=== PATIENT | female | born 1945 | race Caucasian/White ===

== ENCOUNTER → 2017-01-05 | Outpatient (CLI) | payer OTHER ==
[~2017-01-05] MED LIST: ALPR0.5T; EFFEXOR; LISI-646 OR; LISIPOW; TRAM50TA2; VENL25TA2 OR; VENL50TA20 OR
[2017-01-05 08:21] LABS: Cholesterol 206 mg/dL (< 200); HDL Cholesterol 98 mg/dL (40-59); LDL Cholesterol 95 mg/dL (< 100); Triglycerides 107 mg/dL (< 150)
[2017-01-05 08:43] LABS: Urine Bilirubin Negative (Negative); Urine Blood Negative /uL (Negative); Urine Color Yellow (Yellow); Urine Glucose Normal (Normal); Urine Ketone Negative (Negative); Urine Nitrite Negative (Negative); Urine RBC 2 /hpf (0 - 4); Urine Squamous Epithelial Cell FEW /hpf (<5); Urine Urobilinogen Normal (Negative)
== END | disposition home or self-care (01) ==
LOC: LAB 07:45
PROVIDERS: ATTEND Internal Medicine
DX: Z00.00 Encounter for general adult medical examination without abnormal findings (principal); E78.2 Mixed hyperlipidemia; I10 Essential (primary) hypertension; E55.9 Vitamin D deficiency, unspecified
CPT/HCPCS: 36415; 80061; 81001; 82306

== ENCOUNTER 2017-02-24 09:55 | Emergency (ER) | payer OTHER ==
[~2017-02-24] VITALS: Ht 162.6 cm; Wt 72.6 kg
[2017-02-24] MEDS ORDERED: ACETAMINOPHEN 325 MG TAB PO ONE ×2 (13:05→13:15)
[2017-02-24 15:58] VITALS: BP 144/89
== END 2017-02-24 16:56 | disposition home or self-care (01) ==
LOC: ER 09:55
DX: S01.81XA Laceration without foreign body of other part of head, initial encounter (principal); I10 Essential (primary) hypertension; W19.XXXA Unspecified fall, initial encounter; Y93.89 Activity, other specified; Y99.8 Other external cause status; Y92.89 Other specified places as the place of occurrence of the external cause
CPT/HCPCS: 12011; 70450; 70486; 94761

== ENCOUNTER 2017-03-02 09:17 | Emergency (ER) | payer OTHER ==
[~2017-03-02] VITALS: Ht 162.6 cm; Wt 72.6 kg
[2017-03-02 09:50] VITALS: BP 161/101
== END 2017-03-02 10:30 | disposition home or self-care (01) ==
LOC: ER 09:17
DX: S01.112D Laceration without foreign body of left eyelid and periocular area, subsequent encounter (principal); I10 Essential (primary) hypertension; Z90.89 Acquired absence of other organs; Z90.710 Acquired absence of both cervix and uterus; X58.XXXD Exposure to other specified factors, subsequent encounter

== ENCOUNTER → 2017-05-15 | Outpatient (CLI) | payer OTHER ==
[2017-05-15 09:50] LABS: Basophils # (auto) 0 uL; Basophils % (auto) 0.9 % (0.0-2.0); Eosinophils # (auto) 0.1 uL; Eosinophils % (auto) 2.5 % (0.0-7.0); Hematocrit 39.8 % (36.0-46.0); Hemoglobin 13.2 g/dL (12.2-16.2); Lymphocytes % (auto) 25.2 % (10.0-50.0); Mean Corpuscular Hemoglobin 32.3 pg (28.0-32.0); Mean Corpuscular Hgb Conc. 33.2 g/dL (32.0-36.0); Mean Corpuscular Volume 97.1 fL (80.0-100.0); Mean Platelet Volume 7.4 fL (6.9-10.8); Monocytes # (auto) 0.4 uL; Monocytes % (auto) 9.9 % (0.0-12.0); Neutrophils # (auto) 2.6 uL; Neutrophils % (auto) 61.5 % (37.0-80.0); Nucleated Red Blood Cells % 0.1 %; Platelet Count (auto) 201 10^3/uL (140-450); Red Cell Distribution Width 13.9 % (11.8-14.3); White Blood Cell 4.2 10^3/uL (4.4-10.8)
[2017-05-15 10:18] LABS: Albumin 3.6 g/dL (3.4-5.0); BUN/Creatinine Ratio 20.7; Bilirubin, Total 0.5 mg/dL (0.2-1.0); Calcium 8.6 mg/dL (8.5-10.1); Potassium 4.7 mmol/L (3.5-5.1); Total Protein 7.4 g/dL (6.4-8.2)
== END | disposition home or self-care (01) ==
LOC: LAB 09:28
PROVIDERS: ATTEND Internal Medicine
DX: Z75.0 Medical services not available in home (principal); R79.89 Other specified abnormal findings of blood chemistry
CPT/HCPCS: 36415; 80053; 82728; 83540; 83550; 83615; 85025

== ENCOUNTER → 2017-07-27 | Outpatient (CLI) | payer OTHER ==
[2017-07-27 11:02] LABS: Basophils # (auto) 0 uL; Basophils % (auto) 0.8 % (0.0-2.0); Eosinophils # (auto) 0.1 uL; Eosinophils % (auto) 1.6 % (0.0-7.0); Hematocrit 44.8 % (36.0-46.0); Hemoglobin 14.8 g/dL (12.2-16.2); Lymphocytes # (auto) 1.7 uL; Mean Corpuscular Hemoglobin 32.1 pg (28.0-32.0); Mean Corpuscular Hgb Conc. 33.1 g/dL (32.0-36.0); Monocytes # (auto) 0.6 uL; Monocytes % (auto) 13.1 % (0.0-12.0); Neutrophils # (auto) 2.3 uL; Neutrophils % (auto) 49.5 % (37.0-80.0); Platelet Count (auto) 233 10^3/uL (140-450); Red Blood Cells 4.62 10^6/uL (4.0-5.20); White Blood Cell 4.7 10^3/uL (4.4-10.8)
[2017-07-27 11:16] LABS: % Iron Saturation 31.8 % (15-50)
[2017-07-27 11:20] LABS: BUN/Creatinine Ratio 21.3; Bilirubin, Total 0.4 mg/dL (0.2-1.0); Calcium 8.8 mg/dL (8.5-10.1); Potassium 4.8 mmol/L (3.5-5.1); Total Protein 8.3 g/dL (6.4-8.2)
== END | disposition home or self-care (01) ==
LOC: LAB 10:24
PROVIDERS: ATTEND Internal Medicine
DX: E83.119 Hemochromatosis, unspecified (principal)
CPT/HCPCS: 36415; 80053; 82728; 83540; 83550; 83615; 85025

== ENCOUNTER → 2017-09-27 | Outpatient (CLI) | payer OTHER | END | disposition home or self-care (01) | LOC: LAB 08:22 | PROVIDERS: ATTEND Physician Assistant | DX: I10 Essential (primary) hypertension (principal); Z20.818 Contact with and (suspected) exposure to other bacterial communicable diseases; Z79.899 Other long term (current) drug therapy | CPT/HCPCS: 87081 ==

== ENCOUNTER → 2017-10-10 | Outpatient (CLI) | payer OTHER ==
[2017-10-10 11:32] LABS: Basophils # (auto) 0 uL; Basophils % (auto) 0.7 % (0.0-2.0); Eosinophils # (auto) 0 uL; Eosinophils % (auto) 0.9 % (0.0-7.0); Hemoglobin 14.4 g/dL (12.2-16.2); Lymphocytes # (auto) 1.3 uL; Lymphocytes % (auto) 26.2 % (10.0-50.0); Mean Corpuscular Hemoglobin 33.6 pg (28.0-32.0); Mean Corpuscular Hgb Conc. 33.4 g/dL (32.0-36.0); Mean Corpuscular Volume 100.5 fL (80.0-100.0); Monocytes # (auto) 0.8 uL; Monocytes % (auto) 15.7 % (0.0-12.0); Neutrophils # (auto) 2.8 uL; Neutrophils % (auto) 56.5 % (37.0-80.0); Platelet Count (auto) 262 10^3/uL (140-450); Red Blood Cells 4.28 10^6/uL (4.0-5.20); Red Cell Distribution Width 15.8 % (11.8-14.3)
[2017-10-10 13:50] LABS: % Iron Saturation 91.4 % (15-50)
== END | disposition home or self-care (01) ==
LOC: LAB 10:59
PROVIDERS: ATTEND Internal Medicine
DX: E83.119 Hemochromatosis, unspecified (principal); I10 Essential (primary) hypertension; Z79.899 Other long term (current) drug therapy
CPT/HCPCS: 36415; 82728; 83540; 83550; 85025

== ENCOUNTER → 2017-12-18 | Outpatient (CLI) | payer OTHER ==
[2017-12-18 14:54] LABS: Eosinophils # (auto) 0.1 uL; Lymphocytes # (auto) 1.2 uL; Neutrophils # (auto) 3.5 uL; Neutrophils % (auto) 65.5 % (37.0-80.0); Nucleated Red Blood Cells % 0.2 %
[2017-12-18 14:56] LABS: Basophils # (auto) 0.1 uL; Eosinophils % (auto) 1.6 % (0.0-7.0); Hematocrit 43.4 % (36.0-46.0); Hemoglobin 14.8 g/dL (12.2-16.2); Lymphocytes % (auto) 21.7 % (10.0-50.0); Mean Corpuscular Hemoglobin 36.2 pg (28.0-32.0); Mean Corpuscular Volume 106.3 fL (80.0-100.0); Monocytes # (auto) 0.5 uL; Monocytes % (auto) 10.2 % (0.0-12.0); Platelet Count (auto) 260 10^3/uL (140-450); Red Blood Cells 4.08 10^6/uL (4.0-5.20); Red Cell Distribution Width 14.1 % (11.8-14.3); White Blood Cell 5.3 10^3/uL (4.4-10.8)
[2017-12-18 15:18] LABS: Albumin 3.8 g/dL (3.4-5.0); BUN/Creatinine Ratio 15.3; Bilirubin, Total 0.4 mg/dL (0.2-1.0); Potassium 4.6 mmol/L (3.5-5.1); Total Protein 7.3 g/dL (6.4-8.2)
[2017-12-18 15:19] LABS: % Iron Saturation 57.5 % (15-50)
== END | disposition home or self-care (01) ==
LOC: LAB 14:34
PROVIDERS: ATTEND Internal Medicine
DX: E83.119 Hemochromatosis, unspecified (principal); I10 Essential (primary) hypertension; Z79.899 Other long term (current) drug therapy
CPT/HCPCS: 36415; 80053; 82728; 83540; 83550; 83615; 85025

== ENCOUNTER → 2018-01-15 | Outpatient (CLI) | payer OTHER ==
[2018-01-15 08:36] LABS: Basophils # (auto) 0 uL; Eosinophils # (auto) 0.1 uL; Lymphocytes # (auto) 1.3 uL; Mean Corpuscular Hemoglobin 34.9 pg (28.0-32.0); Monocytes # (auto) 0.6 uL; Neutrophils # (auto) 2.4 uL; Neutrophils % (auto) 55.2 % (37.0-80.0); Nucleated Red Blood Cells % 0.1 %; Red Cell Distribution Width 13.3 % (11.8-14.3); White Blood Cell 4.4 10^3/uL (4.4-10.8)
[2018-01-15 08:38] LABS: Basophils % (auto) 0.9 % (0.0-2.0); Eosinophils % (auto) 1.2 % (0.0-7.0); Hematocrit 45.3 % (36.0-46.0); Lymphocytes % (auto) 28.8 % (10.0-50.0); Mean Corpuscular Hgb Conc. 33.1 g/dL (32.0-36.0); Mean Corpuscular Volume 105.4 fL (80.0-100.0); Monocytes % (auto) 13.9 % (0.0-12.0); Platelet Count (auto) 235 10^3/uL (140-450)
[2018-01-15 09:00] LABS: Albumin 3.8 g/dL (3.4-5.0); BUN/Creatinine Ratio 18.6; Bilirubin, Total 0.5 mg/dL (0.2-1.0); Calcium 8.9 mg/dL (8.5-10.1); Potassium 4.9 mmol/L (3.5-5.1); Total Protein 7.7 g/dL (6.4-8.2)
== END | disposition home or self-care (01) ==
LOC: LAB 08:16
PROVIDERS: ATTEND Physician Assistant
DX: I10 Essential (primary) hypertension (principal); E55.9 Vitamin D deficiency, unspecified; E78.2 Mixed hyperlipidemia; R53.83 Other fatigue
CPT/HCPCS: 36415; 80053; 80061; 82306; 85025

== ENCOUNTER → 2018-02-01 | Outpatient (CLI) | payer OTHER ==
[2018-02-01 12:01] LABS: Basophils # (auto) 0 uL; Basophils % (auto) 0.6 % (0.0-2.0); Eosinophils # (auto) 0.1 uL; Eosinophils % (auto) 1.1 % (0.0-7.0); Hemoglobin 15.1 g/dL (12.2-16.2); Mean Corpuscular Hemoglobin 35.4 pg (28.0-32.0); Monocytes # (auto) 0.5 uL; Platelet Count (auto) 255 10^3/uL (140-450)
[2018-02-01 12:03] LABS: Hematocrit 44.5 % (36.0-46.0); Lymphocytes % (auto) 17.5 % (10.0-50.0); Mean Corpuscular Hgb Conc. 33.9 g/dL (32.0-36.0); Mean Corpuscular Volume 104.2 fL (80.0-100.0); Neutrophils # (auto) 4.1 uL; Neutrophils % (auto) 71.8 % (37.0-80.0); Red Blood Cells 4.27 10^6/uL (4.0-5.20); White Blood Cell 5.8 10^3/uL (4.4-10.8)
[2018-02-01 12:09] LABS: % Iron Saturation 36.5 % (15-50)
[2018-02-01 12:16] LABS: Follicle Stimulating Hormone 6.53 IU/L (SEE BELOW); Leuteinizing Hormone 4.1 IU/L
[2018-02-01 12:21] LABS: Albumin 3.8 g/dL (3.4-5.0); BUN/Creatinine Ratio 16.2; Bilirubin, Total 0.4 mg/dL (0.2-1.0); Calcium 9.2 mg/dL (8.5-10.1); Potassium 4.9 mmol/L (3.5-5.1); Total Protein 7.6 g/dL (6.4-8.2)
== END | disposition home or self-care (01) ==
LOC: LAB 11:09
PROVIDERS: ATTEND Obstetrics & Gynecology
DX: N95.1 Menopausal and female climacteric states (principal); I10 Essential (primary) hypertension; E78.2 Mixed hyperlipidemia
CPT/HCPCS: 36415; 80053; 80061; 82670; 82728; 83001; 83002; 83540; 83550; 84403; 84443; 85025

== ENCOUNTER 2018-03-22 20:49 | Emergency (ER) | payer OTHER ==
[~2018-03-22] VITALS: Ht 162.6 cm; Wt 72.1 kg
[2018-03-22 21:25] LABS: Eosinophils # (auto) 0.1 uL; Eosinophils % (auto) 1.2 % (0.0-7.0); Lymphocytes # (auto) 1.8 uL; Monocytes # (auto) 0.6 uL; Neutrophils # (auto) 4.1 uL
[2018-03-22 21:32] LABS: Basophils # (auto) 0.1 uL; Hematocrit 42.8 % (36.0-46.0); Hemoglobin 14.8 g/dL (12.2-16.2); Lymphocytes % (auto) 27.6 % (10.0-50.0); Mean Corpuscular Hemoglobin 34.8 pg (28.0-32.0); Mean Corpuscular Hgb Conc. 34.4 g/dL (32.0-36.0); Monocytes % (auto) 8.4 % (0.0-12.0); Neutrophils % (auto) 61.8 % (37.0-80.0); Platelet Count (auto) 235 10^3/uL (140-450); Red Blood Cells 4.24 10^6/uL (4.0-5.20); Red Cell Distribution Width 13.6 % (11.8-14.3); White Blood Cell 6.7 10^3/uL (4.4-10.8)
[2018-03-22 21:40] LABS: Alanine Aminotransferase 56 U/L (13-56); Albumin 3.9 g/dL (3.4-5.0); Anion Gap 12 (5-15); Aspartate Aminotransferase 51 U/L (15-37); BUN/Creatinine Ratio 21.8; Blood Urea Nitrogen 17 mg/dL (7-18); Calcium 8.5 mg/dL (8.5-10.1); Carbon Dioxide 23 mmol/L (21-32); Chloride 102 mmol/L (98-107); GFR African American 94 mL/min; GFR Non-African American 77 mL/min; Glucose 79 mg/dL (74-106); Sodium 137 mmol/L (136-145)
[2018-03-22 21:45] LABS: Alkaline Phosphatase 92 U/L (45-117); Bilirubin, Total 0.2 mg/dL (0.2-1.0); Total Protein 7.7 g/dL (6.4-8.2)
[2018-03-22 22:45] VITALS: BP 132/71
== END 2018-03-22 22:56 | disposition left against medical advice (07) ==
LOC: ER 20:53
DX: R06.02 Shortness of breath (principal); Z53.21 Procedure and treatment not carried out due to patient leaving prior to being seen by health care provider
CPT/HCPCS: 36415; 71045; 80053; 80320; 83735; 83880; 84484; 85025

== ENCOUNTER → 2018-03-25 | Outpatient (CLI) | payer OTHER ==
[2018-03-25 16:01] LABS: Albumin 3.5 g/dL (3.4-5.0); BUN/Creatinine Ratio 22.5; Bilirubin, Total 0.7 mg/dL (0.2-1.0); Calcium 8.9 mg/dL (8.5-10.1); Total Protein 7.3 g/dL (6.4-8.2)
== END | disposition home or self-care (01) ==
LOC: LAB 10:40
PROVIDERS: ATTEND Internal Medicine Cardiovascular Disease
DX: I10 Essential (primary) hypertension (principal); E78.2 Mixed hyperlipidemia
CPT/HCPCS: 36415; 80053; 80061

== ENCOUNTER → 2018-04-03 | Outpatient (CLI) | payer OTHER ==
[~2018-04-03] VITALS: Ht 162.6 cm; Wt 72.1 kg
[~2018-04-03] MED LIST changes: +ADENOSINE 61 MG in GIVE UN-DILUTED 0 ML IV STA
[2018-04-03 10:01] VITALS: BP 142/108
== END | disposition home or self-care (01) ==
LOC: XY 08:07
PROVIDERS: ATTEND Internal Medicine Cardiovascular Disease
DX: I11.9 Hypertensive heart disease without heart failure (principal)
CPT/HCPCS: 78452; 93017; A9500; J0153

== ENCOUNTER → 2018-04-18 | Outpatient (CLI) | payer OTHER ==
[~2018-04-18] MED LIST changes: -ADENOSINE 61 MG in GIVE UN-DILUTED 0 ML IV STA
== END | disposition home or self-care (01) ==
LOC: XYW 09:48
PROVIDERS: ATTEND Internal Medicine Cardiovascular Disease
DX: I08.2 Rheumatic disorders of both aortic and tricuspid valves (principal)
CPT/HCPCS: 93306

== ENCOUNTER → 2018-06-06 | Outpatient (CLI) | payer OTHER ==
[2018-06-06 10:25] LABS: Eosinophils # (auto) 0.1 uL; Mean Corpuscular Hemoglobin 33.8 pg (28.0-32.0); Nucleated Red Blood Cells % 0.1 %
[2018-06-06 10:26] LABS: Basophils # (auto) 0.1 uL; Basophils % (auto) 1.1 % (0.0-2.0); Hematocrit 48.1 % (36.0-46.0); Hemoglobin 16.1 g/dL (12.2-16.2); Lymphocytes # (auto) 1.2 uL; Lymphocytes % (auto) 24.9 % (10.0-50.0); Mean Corpuscular Hgb Conc. 33.4 g/dL (32.0-36.0); Mean Corpuscular Volume 101.2 fL (80.0-100.0); Monocytes # (auto) 0.5 uL; Monocytes % (auto) 9.7 % (0.0-12.0); Neutrophils # (auto) 2.9 uL; Neutrophils % (auto) 62.3 % (37.0-80.0); Platelet Count (auto) 250 10^3/uL (140-450); Red Blood Cells 4.75 10^6/uL (4.0-5.20); White Blood Cell 4.7 10^3/uL (4.4-10.8)
[2018-06-06 10:38] LABS: % Iron Saturation 54.9 % (15-50)
[2018-06-06 10:39] LABS: Albumin 3.9 g/dL (3.4-5.0); Calcium 9.3 mg/dL (8.5-10.1); Potassium 4.6 mmol/L (3.5-5.1)
[2018-06-06 10:42] LABS: BUN/Creatinine Ratio 15.8; Bilirubin, Total 0.4 mg/dL (0.2-1.0); Total Protein 7.8 g/dL (6.4-8.2)
== END | disposition home or self-care (01) ==
LOC: LAB 10:00
PROVIDERS: ATTEND Internal Medicine
DX: E83.119 Hemochromatosis, unspecified (principal)
CPT/HCPCS: 36415; 80053; 82728; 83540; 83550; 83615; 85025

== ENCOUNTER → 2018-06-06 | Outpatient (CLI) | payer OTHER ==
[~2018-06-06] MED LIST changes: +ALBUTEROL SULF 2.5 MG/0.5ML(0.5%) NEB SOLN ONE
== END | disposition home or self-care (01) ==
LOC: RT 08:32
PROVIDERS: ATTEND Internal Medicine Pulmonary Disease
DX: R06.00 Dyspnea, unspecified (principal)
CPT/HCPCS: 36600; 82805; 94060; J7611; 94727; 94729

== ENCOUNTER → 2018-07-01 | Outpatient (CLI) | payer OTHER ==
[~2018-07-01] MED LIST changes: -ALBUTEROL SULF 2.5 MG/0.5ML(0.5%) NEB SOLN ONE
== END | disposition home or self-care (01) ==
LOC: RT 09:05
PROVIDERS: ATTEND Internal Medicine Pulmonary Disease
DX: R06.00 Dyspnea, unspecified (principal)
CPT/HCPCS: 94618

== ENCOUNTER → 2018-07-29 | Outpatient (CLI) | payer OTHER ==
[2018-07-29 12:19] LABS: Basophils # (auto) 0 uL; Eosinophils # (auto) 0.1 uL; Lymphocytes % (auto) 21.8 % (10.0-50.0); Mean Corpuscular Hemoglobin 34.2 pg (28.0-32.0); Mean Corpuscular Hgb Conc. 33.8 g/dL (32.0-36.0); Monocytes # (auto) 0.5 uL; Nucleated Red Blood Cells % 0.1 %
[2018-07-29 12:21] LABS: Basophils % (auto) 0.8 % (0.0-2.0); Eosinophils % (auto) 1.9 % (0.0-7.0); Hemoglobin 14.5 g/dL (12.2-16.2); Lymphocytes # (auto) 0.9 uL; Mean Corpuscular Volume 101.1 fL (80.0-100.0); Monocytes % (auto) 11.3 % (0.0-12.0); Neutrophils # (auto) 2.8 uL; Neutrophils % (auto) 64.2 % (37.0-80.0); Platelet Count (auto) 214 10^3/uL (140-450); Red Blood Cells 4.26 10^6/uL (4.0-5.20); Red Cell Distribution Width 14.3 % (11.8-14.3); White Blood Cell 4.3 10^3/uL (4.4-10.8)
[2018-07-29 12:43] LABS: Albumin 3.7 g/dL (3.4-5.0); BUN/Creatinine Ratio 23.3; Calcium 8.7 mg/dL (8.5-10.1); Potassium 4.3 mmol/L (3.5-5.1)
[2018-07-29 12:59] LABS: Bilirubin, Total 0.6 mg/dL (0.2-1.0); Total Protein 7.5 g/dL (6.4-8.2)
[2018-07-29 14:29] LABS: % Iron Saturation 34.3 % (15-50)
== END | disposition home or self-care (01) ==
LOC: LAB 11:45
PROVIDERS: ATTEND Internal Medicine
DX: E83.119 Hemochromatosis, unspecified (principal)
CPT/HCPCS: 36415; 80053; 82728; 83540; 83550; 83615; 85025

== ENCOUNTER → 2018-09-11 | Outpatient (CLI) | payer OTHER | END | disposition home or self-care (01) | LOC: XYW 09:36 | PROVIDERS: ATTEND Internal Medicine Cardiovascular Disease | DX: I06.1 Rheumatic aortic insufficiency (principal); I11.9 Hypertensive heart disease without heart failure | CPT/HCPCS: 93306 ==

== ENCOUNTER → 2018-10-01 | Outpatient (CLI) | payer OTHER | END | disposition home or self-care (01) | LOC: LAB 15:00 | PROVIDERS: ATTEND Physician Assistant | DX: C44.91 Basal cell carcinoma of skin, unspecified (principal) ==

== ENCOUNTER 2018-11-18 07:55 | Day surgery (SDC) | payer OTHER ==
[2018-11-15 11:52] LABS: INR 0.99 (0.9-1.15); Partial Thromboplastin Time 25.4 sec (23.64-32.05)
[2018-11-15 11:56] LABS: Albumin 3.9 g/dL (3.4-5.0); Calcium 9.5 mg/dL (8.5-10.1); Potassium 4.9 mmol/L (3.5-5.1)
[2018-11-15 12:01] LABS: BUN/Creatinine Ratio 26.7; Bilirubin, Total 0.4 mg/dL (0.2-1.0); Total Protein 7.9 g/dL (6.4-8.2)
[2018-11-15 12:06] LABS: Basophils # (auto) 0 uL; Basophils % (auto) 0.5 % (0.0-2.0); Eosinophils # (auto) 0.1 uL; Eosinophils % (auto) 1.2 % (0.0-7.0); Hematocrit 44.1 % (36.0-46.0); Hemoglobin 14.5 g/dL (12.2-16.2); Lymphocytes % (auto) 19.5 % (10.0-50.0); Mean Corpuscular Hemoglobin 31.3 pg (28.0-32.0); Mean Corpuscular Hgb Conc. 32.7 g/dL (32.0-36.0); Mean Corpuscular Volume 95.6 fL (80.0-100.0); Monocytes # (auto) 0.7 uL; Neutrophils # (auto) 3.3 uL; Neutrophils % (auto) 65.8 % (37.0-80.0); Nucleated Red Blood Cells % 0.1 %; Platelet Count (auto) 218 10^3/uL (140-450); Red Blood Cells 4.62 10^6/uL (4.0-5.20); Red Cell Distribution Width 16.3 % (11.8-14.3)
[~2018-11-18] VITALS: Ht 162.6 cm; Wt 76.2 kg
[~2018-11-18 07:55] MED LIST changes: +ACET30TA15 PO; -ALPR0.5T; +ALPR0.5T PO; +AMLO5TAB13 PO; +BUPR-40 PO; -EFFEXOR; +HYDR12.56 PO; -LISI-646 OR; +LISI40TA PO; -LISIPOW; -TRAM50TA2; +VENL150C58 PO; -VENL25TA2 OR; -VENL50TA20 OR
[2018-11-18] MEDS ORDERED: MIDAZOLAM HCL 1MG/1ML-2 ML VIAL IV ONE (08:30)
[2018-11-18] MEDS ORDERED: LIDOCAINE VISCOUS 2% 15ML UD PO ONE (08:30)
[2018-11-18] MEDS ORDERED: fentaNYL CITRATE 100 MCG/2 ML VL IV ONE (08:30)
[2018-11-18] MEDS ORDERED: IOHEXOL 350 MG/ML 100ML IJ ONE (09:47)
[2018-11-18] MEDS ORDERED: METOPROLOL TARTRATE 1MG/1ML-5ML VIAL IV ONE ×4 (10:06→10:26)
[2018-11-18] MEDS ORDERED: VERAPAMIL 2.5MG/ML INJ 2ML VIAL IV ONE ×2 (10:07→10:15)
[2018-11-18] MEDS ORDERED: ATROPINE SULFATE 1 MG/1 ML VIAL ONE (10:07)
== END 2018-11-18 14:03 | disposition home or self-care (01) ==
LOC: CATH 07:55
PROVIDERS: ATTEND Internal Medicine
DX: I08.0 Rheumatic disorders of both mitral and aortic valves (principal); G89.4 Chronic pain syndrome; F32.9 Major depressive disorder, single episode, unspecified; K21.9 Gastro-esophageal reflux disease without esophagitis; E28.39 Other primary ovarian failure; I11.0 Hypertensive heart disease with heart failure; I50.9 Heart failure, unspecified; J43.9 Emphysema, unspecified; K76.0 Fatty (change of) liver, not elsewhere classified; M46.04 Spinal enthesopathy, thoracic region; Z82.49 Family history of ischemic heart disease and other diseases of the circulatory system; Z79.899 Other long term (current) drug therapy
CPT/HCPCS: 36415; 71250; 75571; 75574; 80053; 85025; 85610; 85730; 93312; J2250; J3010; J7030; Q9967; 99152; J0461

== ENCOUNTER → 2018-12-12 | Outpatient (CLI) | payer OTHER ==
[2018-12-12 08:49] LABS: Basophils # (auto) 0 uL; Basophils % (auto) 0.6 % (0.0-2.0); Eosinophils # (auto) 0.1 uL; Eosinophils % (auto) 1.4 % (0.0-7.0); Hematocrit 43.7 % (36.0-46.0); Hemoglobin 14.3 g/dL (12.2-16.2); Lymphocytes % (auto) 26.6 % (10.0-50.0); Mean Corpuscular Hemoglobin 31.5 pg (28.0-32.0); Mean Corpuscular Hgb Conc. 32.8 g/dL (32.0-36.0); Mean Corpuscular Volume 95.9 fL (80.0-100.0); Monocytes # (auto) 0.5 uL; Monocytes % (auto) 14.2 % (0.0-12.0); Neutrophils # (auto) 2.1 uL; Neutrophils % (auto) 57.2 % (37.0-80.0); Platelet Count (auto) 203 10^3/uL (140-450); Red Blood Cells 4.56 10^6/uL (4.0-5.20); Red Cell Distribution Width 18.1 % (11.8-14.3); White Blood Cell 3.7 10^3/uL (4.4-10.8)
[2018-12-12 09:10] LABS: Albumin 3.9 g/dL (3.4-5.0); BUN/Creatinine Ratio 21.6; Calcium 9.1 mg/dL (8.5-10.1); Potassium 3.9 mmol/L (3.5-5.1)
[2018-12-12 09:12] LABS: Bilirubin, Total 0.3 mg/dL (0.2-1.0); Total Protein 7.9 g/dL (6.4-8.2)
[2018-12-12 09:15] LABS: % Iron Saturation 17.1 % (15-50)
== END | disposition home or self-care (01) ==
LOC: LAB 08:25
PROVIDERS: ATTEND Internal Medicine
DX: E83.119 Hemochromatosis, unspecified (principal)
CPT/HCPCS: 36415; 80053; 82728; 83540; 83550; 83615; 85025

== ENCOUNTER → 2019-03-03 | Outpatient (CLI) | payer OTHER ==
[~2019-03-03] MED LIST changes: -AMLO5TAB13 PO; +AMLO5TAB15 PO
[2019-03-03 11:28] LABS: Basophils # (auto) 0 uL; Basophils % (auto) 0.8 % (0.0-2.0); Eosinophils # (auto) 0.1 uL; Eosinophils % (auto) 1.7 % (0.0-7.0); Hematocrit 41.4 % (36.0-46.0); Hemoglobin 13.5 g/dL (12.2-16.2); Lymphocytes % (auto) 28.9 % (10.0-50.0); Mean Corpuscular Hemoglobin 31.2 pg (28.0-32.0); Mean Corpuscular Hgb Conc. 32.7 g/dL (32.0-36.0); Mean Corpuscular Volume 95.4 fL (80.0-100.0); Monocytes # (auto) 0.4 uL; Monocytes % (auto) 11.4 % (0.0-12.0); Neutrophils % (auto) 57.2 % (37.0-80.0); Platelet Count (auto) 232 10^3/uL (140-450); Red Blood Cells 4.34 10^6/uL (4.0-5.20); Red Cell Distribution Width 16.1 % (11.8-14.3); White Blood Cell 3.5 10^3/uL (4.4-10.8)
[2019-03-03 11:36] LABS: Albumin 3.8 g/dL (3.4-5.0); Calcium 9.8 mg/dL (8.5-10.1); Potassium 4.5 mmol/L (3.5-5.1)
[2019-03-03 11:39] LABS: BUN/Creatinine Ratio 12.2; Bilirubin, Total 0.4 mg/dL (0.2-1.0); Total Protein 7.8 g/dL (6.4-8.2)
[2019-03-03 17:14] LABS: % Iron Saturation 14.8 % (15-50)
== END | disposition home or self-care (01) ==
LOC: LAB 10:18
PROVIDERS: ATTEND Internal Medicine
DX: E83.119 Hemochromatosis, unspecified (principal)
CPT/HCPCS: 36415; 80053; 82728; 83540; 83550; 83615; 85025

== ENCOUNTER → 2019-03-31 | Outpatient (CLI) | payer OTHER ==
[2019-03-31 11:09] LABS: Potassium 4.1 mmol/L (3.5-5.1)
[2019-03-31 11:15] LABS: Albumin 3.7 g/dL (3.4-5.0); BUN/Creatinine Ratio 13.3; Bilirubin, Total 0.4 mg/dL (0.2-1.0); Calcium 9.2 mg/dL (8.5-10.1); Total Protein 7.9 g/dL (6.4-8.2)
== END | disposition home or self-care (01) ==
LOC: LAB 09:03
PROVIDERS: ATTEND Internal Medicine
DX: R06.02 Shortness of breath (principal); E83.19 Other disorders of iron metabolism; I10 Essential (primary) hypertension
CPT/HCPCS: 36415; 80053

== ENCOUNTER → 2019-05-27 | Outpatient (CLI) | payer OTHER ==
[~2019-05-27] MED LIST changes: +FURO40TA4 PO; +POTA8TAB2 PO; +SPIR50TA5 PO
[2019-05-27 10:59] LABS: Basophils # (auto) 0 uL; Basophils % (auto) 0.9 % (0.0-2.0); Eosinophils # (auto) 0.1 uL; Eosinophils % (auto) 2.8 % (0.0-7.0); Hematocrit 41.1 % (36.0-46.0); Hemoglobin 13.5 g/dL (12.2-16.2); Lymphocytes % (auto) 28.3 % (10.0-50.0); Mean Corpuscular Hgb Conc. 32.8 g/dL (32.0-36.0); Mean Corpuscular Volume 94.2 fL (80.0-100.0); Monocytes # (auto) 0.5 uL; Monocytes % (auto) 12.5 % (0.0-12.0); Neutrophils % (auto) 55.5 % (37.0-80.0); Nucleated Red Blood Cells % 0.1 %; Platelet Count (auto) 207 10^3/uL (140-450); Red Blood Cells 4.36 10^6/uL (4.0-5.20); Red Cell Distribution Width 16.9 % (11.8-14.3); White Blood Cell 3.6 10^3/uL (4.4-10.8)
[2019-05-27 11:13] LABS: INR 1.02 (0.9-1.15); Partial Thromboplastin Time 25.6 sec (23.64-32.05)
[2019-05-27 11:26] LABS: Albumin 3.9 g/dL (3.4-5.0); Calcium 9.2 mg/dL (8.5-10.1); Potassium 5.4 mmol/L (3.5-5.1)
[2019-05-27 11:31] LABS: BUN/Creatinine Ratio 21.6; Bilirubin, Total 0.4 mg/dL (0.2-1.0); Total Protein 7.6 g/dL (6.4-8.2)
[2019-05-27 11:33] LABS: Urine Bacteria MOD /hpf (None Seen); Urine Blood Negative /uL (Negative); Urine Specific Gravity 1.008 (1.001-1.035); Urine WBC 23 /hpf (0 - 5)
== END | disposition home or self-care (01) ==
LOC: LAB 10:39
PROVIDERS: ATTEND Internal Medicine
DX: Z01.812 Encounter for preprocedural laboratory examination (principal); I11.0 Hypertensive heart disease with heart failure; I50.9 Heart failure, unspecified
CPT/HCPCS: 36415; 80053; 81001; 85025; 85610; 85730

== ENCOUNTER 2019-05-28 09:21 | Day surgery (SDC) | payer OTHER ==
[~2019-05-28] VITALS: Ht 162.6 cm; Wt 77.1 kg
[~2019-05-28 09:21] MED LIST changes: -ACET30TA15 PO; -BUPR-40 PO; -HYDR12.56 PO; -VENL150C58 PO
[2019-05-28] MEDS ORDERED: MIDAZOLAM HCL 1MG/1ML-2 ML VIAL ONE ×2 (12:16→12:36)
[2019-05-28] MEDS ORDERED: IOHEXOL 350 MG/ML 100ML IJ ONE (12:16)
[2019-05-28] MEDS ORDERED: ANGIOMAX 250 MG VIAL IV ONE (12:16)
[2019-05-28] MEDS ORDERED: LIDOCAINE 2%HCL (LOCAL ANESTH.) INJ 20ML MDV ONE (12:16)
[2019-05-28] MEDS ORDERED: SODIUM CHL 0.9% 0 ML ONE (12:16)
[2019-05-28] MEDS ORDERED: fentaNYL CITRATE 100 MCG/2 ML VL ONE ×2 (12:16→12:36)
[2019-05-28] MEDS ORDERED: IODIXANOL 320MG/ML 100ML BTL IV ONE (12:17)
[2019-05-28] MEDS ORDERED: HYDROcodone-ACET 5/325MG TAB PO PRN (13:30)
[2019-05-28] MEDS ORDERED: ONDANSETRON HCL 4 MG/2 ML VIAL IV PRN (13:30)
[2019-05-28] MEDS ORDERED: ACETAMINOPHEN 500 MG TAB PO PRN (13:30)
== END 2019-05-28 15:35 | disposition home or self-care (01) ==
LOC: CATH 09:21
PROVIDERS: ATTEND Internal Medicine
DX: I11.0 Hypertensive heart disease with heart failure (principal); I50.9 Heart failure, unspecified; I27.22 Pulmonary hypertension due to left heart disease; Z79.899 Other long term (current) drug therapy; Z98.890 Other specified postprocedural states
CPT/HCPCS: 93460; C1751; C1760; C1894; J1644; J2250; J3010; Q9967; 99152; 99153

== ENCOUNTER 2019-08-20 15:36 | Inpatient (IN) | payer OTHER ==
[~2019-08-20] VITALS: Ht 162.6 cm; Wt 78.5 kg
[2019-08-20 16:42] LABS: Eosinophils # (auto) 0 10 ^3/uL (0-0.8); Hemoglobin 13.6 g/dL (12.2-16.2); Mean Corpuscular Hemoglobin 34.1 pg (28.0-32.0); Neutrophils # (auto) 2.3 10 ^3/uL (1.6-8.6)
[2019-08-20 16:44] LABS: Basophils # (auto) 0 10 ^3/uL (0-0.2); Basophils % (auto) 0.9 % (0.0-2.0); Eosinophils % (auto) 0.9 % (0.0-7.0); Lymphocytes % (auto) 27.2 % (10.0-50.0); Mean Corpuscular Hgb Conc. 33.9 g/dL (32.0-36.0); Mean Corpuscular Volume 100.5 fL (80.0-100.0); Monocytes # (auto) 0.4 10 ^3/uL (0-1.3); Monocytes % (auto) 10.2 % (0.0-12.0); Neutrophils % (auto) 60.8 % (37.0-80.0); Nucleated Red Blood Cells % 0.4 %; Platelet Count (auto) 199 10^3/uL (140-450); Red Blood Cells 3.98 10^6/uL (4.0-5.20); Red Cell Distribution Width 17.2 % (11.8-14.3); White Blood Cell 3.8 10^3/uL (4.4-10.8)
[2019-08-20 16:54] LABS: Albumin 3.1 g/dL (3.4-5.0); BUN/Creatinine Ratio 18.8; Calcium 8.6 mg/dL (8.5-10.1)
[2019-08-20 16:59] LABS: Bilirubin, Total 0.4 mg/dL (0.2-1.0); Total Protein 6.8 g/dL (6.4-8.2)
[2019-08-20 17:03] LABS: Potassium 2.9 mmol/L (3.5-5.1)
[2019-08-20] MEDS ORDERED: ASPirin 81 mg TAB PO ONE (17:30)
[2019-08-20] MEDS ORDERED: POTASSIUM CHL 20 Meq TABLET PO ONE ×2 (17:30)
[2019-08-20 18:12] LABS: INR 1.01 (0.9-1.15); Partial Thromboplastin Time 25.4 sec (23.64-32.05)
[2019-08-20 20:38] LABS: Urine Bacteria MANY /hpf (None Seen); Urine Blood 2+ /uL (Negative); Urine Mucus FEW (None Seen); Urine Specific Gravity 1.022 (1.001-1.035); Urine WBC 31 /hpf (0 - 5)
[2019-08-20 21:04] LABS: Amphetamine Screen, Urine NEGATIVE (NEGATIVE); Barbiturate Scree,Urine NEGATIVE (NEGATIVE); Benzodiazephine Screen, Urine NEGATIVE (NEGATIVE); Cannabinoid Screen, Urine NEGATIVE (NEGATIVE); Cocaine Screen, Urine NEGATIVE (NEGATIVE); Opiate Scree,Urine NEGATIVE (NEGATIVE); Phencyclidine Screen, Urine NEGATIVE (NEGATIVE)
[2019-08-20] MEDS ORDERED: SODIUM CHLORIDE 0.9% 500 ML IV ONE (21:15)
[2019-08-20] MEDS ORDERED: ONDANSETRON HCL 4 MG/2 ML VIAL IV PRN (21:15)
[2019-08-20] MEDS ORDERED: TEMAZEPAM 15 MG CAP PO PRN (21:15)
[2019-08-20] MEDS ORDERED: ACETAMINOPHEN 325 MG TAB PO PRN (21:15)
[2019-08-20] MEDS ORDERED: LORazepam 2MG/ML-1ML VIAL IV ONE (21:30)
[2019-08-20] MEDS ORDERED: MORPHINE SULF INJ 2 MG/ML SYRINGE 1ML IV PRN (21:30)
[2019-08-20] MEDS ORDERED: NITROGLYCERIN 0.4 MG SL TAB SL PRN (21:30)
[2019-08-20] MEDS: FAMOTIDINE 20 MG TAB PO SCH (22:18)
[2019-08-20] MEDS: ATORVASTATIN 20 MG TAB PO SCH (22:19)
[2019-08-20 23:20] VITALS: BP 174/111
--- NOTE | 2019-08-20 23:20 | NUR ---
Telemetry admit from [facility]O admitted to Telemetry unit. Patient oriented to Halina Leyva, primary RN, unit, room, bed, and unit policies regarding patient care. Patient now on continuous telemetry monitoring, tele box # 61 and telemetry reading on arrival to unit is Sinus rhythm HR of 94. Patient is on 2 liters of oxygen via nasal cannula. Patient's respirations even and unlabored. Patient has no S/S of distress/SOB or pain. Patient is alert and oriented x4. Patient encouraged to call if they need something. All questions and concerns addressed, patient verbalized understanding.
--- NOTE | 2019-08-20 23:30 | NUR ---
Patient's buttocks and anal area cleansed with soap and water and pat dry, Z guard applied, and sacral Optifoam applied. Area underneath both breasts cleansed with soap and water and Z guard applied. Right groin cleansed with soap and water and Z guard applied.
[2019-08-21] VITALS (7 sets, daily range): BP systolic 147–155; BP diastolic 88–105
--- NOTE | 2019-08-21 00:08 | NUR ---
Patient's blood pressure rechecked and is 150/104. Hospitalist paged regarding patient's blood pressure and no PRN blood pressure medication available. Addendum: 08/21/19 at 0819 by Halina Leyva RN Patient is asymptomatic. Patient has no S/S of distress/SOB or chest pain.
[2019-08-21] MEDS ORDERED: cloNIDine HCL 0.1 MG TAB PO ONE (00:15)
--- NOTE | 2019-08-21 00:15 | NUR ---
TY Crespo, called back regarding patient's blood pressure of 150/104. New order received: one time dose of clonidine 0.1 mg tablet PO.
[2019-08-21] MEDS ORDERED: chlordiazePOXIDE HCL 25 MG CAP PO PRN (03:30)
[2019-08-21] MEDS ORDERED: SILDENAFIL CITRATE 20 MG TAB PO SCH ×2 (03:30→10:00)
--- NOTE | 2019-08-21 05:05 | NUR ---
Hospitalist paged regarding patient's blood pressure of 174/112 and no PRN blood pressure medication available. Patient asymptomatic. Patient has no S/S of distress/SOB or chest pain.
[2019-08-21 05:22] LABS: Basophils # (auto) 0 10 ^3/uL (0-0.2); Basophils % (auto) 0.7 % (0.0-2.0); Eosinophils # (auto) 0 10 ^3/uL (0-0.8); Eosinophils % (auto) 0.8 % (0.0-7.0); Hematocrit 37.7 % (36.0-46.0); Lymphocytes # (auto) 0.7 10 ^3/uL (0.4-5.4); Lymphocytes % (auto) 19.4 % (10.0-50.0); Mean Corpuscular Hemoglobin 34.7 pg (28.0-32.0); Mean Corpuscular Hgb Conc. 34.4 g/dL (32.0-36.0); Mean Corpuscular Volume 100.8 fL (80.0-100.0); Monocytes # (auto) 0.4 10 ^3/uL (0-1.3); Monocytes % (auto) 10.7 % (0.0-12.0); Neutrophils # (auto) 2.6 10 ^3/uL (1.6-8.6); Neutrophils % (auto) 68.4 % (37.0-80.0); Nucleated Red Blood Cells % 0.1 %; Platelet Count (auto) 163 10^3/uL (140-450); Red Blood Cells 3.74 10^6/uL (4.0-5.20); Red Cell Distribution Width 17.2 % (11.8-14.3); White Blood Cell 3.8 10^3/uL (4.4-10.8)
--- NOTE | 2019-08-21 05:30 | NUR ---
TY Crespo, called back regarding patient's blood pressure of 174/112. New order received to give patient scheduled daily dose of Lisinopril 20 mg tablet PO now.
[2019-08-21 05:45] LABS: Potassium 3.2 mmol/L (3.5-5.1)
[2019-08-21 05:53] LABS: BUN/Creatinine Ratio 31.8; Bilirubin, Total 0.9 mg/dL (0.2-1.0); Calcium 8.3 mg/dL (8.5-10.1); Total Protein 5.9 g/dL (6.4-8.2)
--- NOTE | 2019-08-21 07:00 | NUR ---
CLOSING NOTE Patient is on 2 liters of oxygen via nasal cannula. Patient has no S/S of distress/SOB or pain. Endorsed to day shift RN that patient was given 20 mg PO Lisinopril tablet at 0624 for blood pressure and no PRN blood pressure medication is available. Blood pressure to be reassessed per day shift RN. Patient asymptomatic.
[2019-08-21] MEDS ORDERED: POTASSIUM CHL 20 Meq TABLET PO ONE (08:15)
[2019-08-21] MEDS ORDERED: ADENOSINE 66 MG in GIVE UN-DILUTED 0 ML IV STA (08:32)
[2019-08-21] MEDS: cefTRIAXone 1GM/50ML D5W 50 ML IV SCH (08:38)
[2019-08-21] MEDS: SPIRONOLACTONE 25 MG TAB PO SCH (09:49)
[2019-08-21] MEDS: FUROSEMIDE 40 MG TAB PO SCH (09:50)
[2019-08-21] MEDS: FAMOTIDINE 20 MG TAB PO SCH ×2 (09:51→21:14)
[2019-08-21] MEDS: LISINOPRIL 20 MG TAB PO SCH (09:51)
[2019-08-21] MEDS ORDERED: LISINOPRIL 20 MG TAB PO SCH (10:00)
[2019-08-21] MEDS ORDERED: ASPirin 81 mg TAB PO SCH (10:00)
[2019-08-21] MEDS: FOLIC ACID 1 MG, MULTIPLE VITAMIN 10 ML, MAGNESIUM SULF SDV 50% 8 MEQ, THIAMINE INJ 100... INJ SCH ×5 (13:00)
--- NOTE | 2019-08-21 13:00 | NUR ---
WOUND CARE NOTE: Wound care into see patient per wound care request regarding multiple skin integrity issue that are noted present on admission. Bedside nurse took photograph of patient's skin issue upon discovery for reference. Patient is 74 years old female with admitting diagnosis of Atypical Chest Pain. Patient with history of Anxiety and Depression. Patient is resting in bed in Rm. 281B. Patient is awake, alert and able to verbalize needs. Patient is in no stated pain at this time and she appears to be in no pain using Palumbo Boucher Faces Pain Scale. Patient is self turning and repositioning. Her Tobias score is 15. Skin assessment done with the assistance of patient's nurse RN Kymberly. Noted erythema under patient's skin folds under bilateral breast, abdominal fold and groin consistent with intertriginous dermatitis. Patient's inner buttocks, perirectal and intragluteal fold also noted with red denuded skin consistent with Moisture associated skin damage. Patient reports of incontinence. Patient is receiving BID/PRN cleaning and application of Barrier cream to intertriginous dermatitis and Z Guard cream to sacral, buttocks and perineum per MD order. Patient tolerated well, repositioned for comfort. Bed in low position with all safety precautions in placed. Patient's family at bedside. RECOMMENDATION: Nursing to continue with BID/PRN cleaning and application Barrier cream to intertriginous rashes and sacral, buttocks MASD per MD order, frequent turning and repositioning schedule as condition permits, redistribute pressure points with pillows, elevate heels on pillows, frequent letty check/care, keep clean and dry, continue monitoring by wound care while patient is hospitalized. Addendum: 08/21/19 at 1548 by Tracey Santiago RN Amended: Links added.
[2019-08-21 13:58] LABS: Free T3 2.67 pg/mL (2.3-4.2); Free T4 (Free Thyroxine) 0.79 ng/dL (0.89-1.76)
[2019-08-21] MEDS ORDERED: MAGNESIUM SULFATE 1GM/100ML 100 ML IV SCH ×2 (14:00→16:30)
--- NOTE | 2019-08-21 14:00 | NUR ---
DR STEELE BEDSIDE WITH PATIENT
[2019-08-21] MEDS: SILDENAFIL CITRATE 20 MG TAB PO SCH ×2 (14:08→19:49)
[2019-08-21] MEDS ORDERED: cloNIDine HCL 0.1 MG TAB PO PRN (14:15)
[2019-08-21] MEDS ORDERED: MAGNESIUM SULFATE 1GM/100ML 100 ML IV ONE (15:30)
--- NOTE | 2019-08-21 17:09 | NUR ---
assessment re: ss consult Patient is a 74 year old female who is alert and oriented. Patients cognitive abilities are intact. Prior to admission patient lived home with family and functioned with assistance. Per patient she will return home to her prior living arrangements post discharge and family will transport her home. Patients PCP is Sarah Lezama. Patient has no DME at home. I informed patient of her ss consult for placement and being found in feces. Patient is refusing placement. Patient informed me she has been drinking a fifth of vodka per day for the past 5 months. Patient has denied any triggers at that time. Patient informed me that her son buys her alcohol. Patient is willing to stop drinking. Patient informed me she wants to try on her own. Patient is requesting Anabuse and Librium to be prescribed to her. I informed patient I would speak to the MD and that I would also refer her to [facility] program. I will meet with patient again when her is not at bedside to see if patient is willing to talk about her drinking and what triggered it [address] Valentin has been informed about patient. I informed patient she has a right to speak to a social sciences professor regarding all care. I informed patient she has a right to participate in any and all discharge planning. Patient does not have a POA and advanced directive. I have offered patient information on POA and advanced directives. I informed the patient the advantages and benefits of having an Advanced Directive. Patient verbalized understanding and agreed to discharge plan. Addendum: 08/21/19 at 1716 by Tara OWENS Amended: Links added.
[2019-08-21] MEDS: chlordiazePOXIDE HCL 25 MG CAP PO SCH ×2 (17:36→23:08)
--- NOTE | 2019-08-21 20:00 | NUR ---
Opening Shift Note Assumed care of patient, awake and alert. No S/S of distress/SOB or pain. Patient is on 2 liters of oxygen via nasal cannula. Respirations even and unlabored. Patient's buttocks/perineal area cleansed with soap and water and barrier cream applied. Instructed on POC and to call for assist PRN, will continue to monitor for changes Q1hr and PRN.
[2019-08-21] MEDS: ATORVASTATIN 20 MG TAB PO SCH (21:14)
[2019-08-21] MEDS: MAGNESIUM SULFATE 1GM/100ML 100 ML IV SCH (23:07)
--- NOTE | 2019-08-22 | NUR ---
Wound care done Patient's area underneath right breast and left breast, abdominal folds, and right groin fold cleansed with soap and water. Barrier cream applied per MD order.
[2019-08-22] MEDS: MAGNESIUM SULFATE 1GM/100ML 100 ML IV SCH ×2 (00:21→01:29)
--- NOTE | 2019-08-22 01:15 | NUR ---
Endorsed care to MERE Silveira Report given to MERE Silveira. Patient asymptomatic.
--- NOTE | 2019-08-22 01:20 | NUR ---
ASSUMED CARE RECEIVED SBAR/REPORT FROM MERE CALZADA. PATIENT IS SLEEPING COMFORTABLY AT THIS TIME. VISIBLE RISE AND FALL OF CHEST NOTED. NO S/S OF DISTRESS. PATIENT HAS IV MAGNESIUM BAG RUNNING AT THIS TIME. WILL CONTINUE TO MONITOR CLOSELY.
[2019-08-22 01:45] VITALS: BP 134/87
[2019-08-22 05:02] VITALS: BP 147/97
[2019-08-22] MEDS: chlordiazePOXIDE HCL 25 MG CAP PO SCH ×4 (05:44→23:46)
[2019-08-22 06:57] LABS: Cholesterol 192 mg/dL (< 200)
[2019-08-22 06:59] LABS: HDL Cholesterol 91 mg/dL (40-59); LDL Cholesterol 77 mg/dL (< 100); Triglycerides 108 mg/dL (< 150)
[2019-08-22 07:01] LABS: Calcium 8.5 mg/dL (8.5-10.1); Potassium 3.4 mmol/L (3.5-5.1)
[2019-08-22 07:04] LABS: BUN/Creatinine Ratio 20.5
--- NOTE | 2019-08-22 07:24 | NUR ---
CLOSING PATIENT SLEEPING. NO S/S OF DISTRESS NOTED.CALL LIGHT WITHIN REACH CARE ENDORSED TO DAYSHIFT RN
--- NOTE | 2019-08-22 07:40 | NUR ---
OPENING NOTE ASSUMED CARE OF PT. ALERT AND ORIENTED. NO S/S OF SOB/DISTRESS NOTED. SAFETY PRECAUTIONS IN PLACE. BED SET TO LOWEST POSITION/LOCKED, BEDSIDE RAIL UP X2, CALL LIGHT WITHIN REACH. INSTRUCTED PT TO CALL FOR ASSISTANCE. UPDATED ON POC. PT VERBALIZED UNDERSTANDING. WILL CONTINUE TO MONITOR Q1HR AND PRN.
[2019-08-22] MEDS: cefTRIAXone 1GM/50ML D5W 50 ML IV SCH (09:53)
[2019-08-22] MEDS: ASPirin 81 mg TAB PO SCH (09:53)
[2019-08-22] MEDS: FAMOTIDINE 20 MG TAB PO SCH ×2 (09:54→22:32)
[2019-08-22] MEDS: SILDENAFIL CITRATE 20 MG TAB PO SCH ×3 (09:54→20:37)
[2019-08-22] MEDS: FUROSEMIDE 40 MG TAB PO SCH (09:54)
[2019-08-22] MEDS: SPIRONOLACTONE 25 MG TAB PO SCH (09:55)
[2019-08-22] MEDS: LISINOPRIL 20 MG TAB PO SCH (09:55)
[2019-08-22] MEDS ORDERED: POTASSIUM CHL 10 Meq TABLET PO ONE (10:15)
--- NOTE | 2019-08-22 11:15 | NUR ---
TELE MONITOR TELE BOX #61 SENT BACK TO ICU. DEHAIRING MACHINE TENDER RODO IS AWARE.
--- NOTE | 2019-08-22 11:48 | NUR ---
NUTRITION CONSULT/ASSESSMENT NOTES Please refer to link notes of nutrition screen form filed under the intervention section of the plan of care for further details. Est. Needs: 1650 kcal to 2050 kcal (20-25 kcal/kgBW), 65 gms to 82 gms pro (0.8-1.0 gms/kgBW). Will continue to monitor pertinent labs and reassess nutrient needs prn Thank you for this consult. Addendum: 08/22/19 at [address] Amended: Links added.
[2019-08-22 13:00] VITALS: BP 141/89
[2019-08-22] MEDS: FOLIC ACID 1 MG, MULTIPLE VITAMIN 10 ML, MAGNESIUM SULF SDV 50% 8 MEQ, THIAMINE INJ 100... INJ SCH ×5 (13:19)
[2019-08-22 16:42] VITALS: BP 153/82
[2019-08-22] MEDS ORDERED: FURO40TA4 PO (19:00)
[2019-08-22] MEDS ORDERED: LISI40TA PO (19:00)
[2019-08-22] MEDS ORDERED: SILD20TA2 PO (19:04)
[2019-08-22] MEDS ORDERED: PAR20T PO (19:04)
[2019-08-22] MEDS ORDERED: POTA8TAB2 PO (19:04)
[2019-08-22] MEDS ORDERED: AMLO10TA13 PO (19:04)
--- NOTE | 2019-08-22 19:15 | NUR ---
Opening Shift Note Assumed care of patient, awake and alert and oriented X 4. No S/S of distress/SOB or pain. Bed is in lowest position, locked, with two side rails raised and call sullivan is within reach. Instructed on POC and to call for assist PRN, will continue to monitor for changes Q1hr and PRN.
[2019-08-22 20:00] VITALS: BP 141/93
[2019-08-22 21:54] VITALS: BP 147/93
[2019-08-22] MEDS: ATORVASTATIN 20 MG TAB PO SCH (22:33)
[2019-08-23 05:04] VITALS: BP 121/72
[2019-08-23] MEDS: chlordiazePOXIDE HCL 25 MG CAP PO SCH (05:55)
--- NOTE | 2019-08-23 07:00 | NUR ---
PATIENT AWAKE, SITTING ON THE SIDE OF THE BED EATING BREAKFAST. PATIENT IS CALM, VERY AWARE OF HER SITUATION. PATIENT IS "VERY CONCERNED ABOUT HER AND WHO WILL TAKE CARE OF HIM", PATIENT STATED MY STARTED TO S*%$T HIS PANTS AND THAT PUTS A LOT OF STRESS ON ME AND THAT'S WHY I WAS DRINKING FOR A FEW DAYS WITHOUT CHANGING MY UNDERGARMENT" "THERE IS NO ONE TO TAKE CARE OF ME" I OFFERED PATIENT TO TALK TO A PRESSROOM WORKER IF AVAILABLE ON THE WEEKEND. PATIENT REFUSED, SHE SAID HER SISTER WILL COME AND SIT WITH HER TODAY. WILL CONTINUE TO MONITOR.
[2019-08-23] MEDS: cefTRIAXone 1GM/50ML D5W 50 ML IV SCH (08:37)
[2019-08-23] MEDS: ASPirin 81 mg TAB PO SCH (08:39)
[2019-08-23] MEDS: SILDENAFIL CITRATE 20 MG TAB PO SCH ×3 (08:39→21:05)
[2019-08-23] MEDS: FAMOTIDINE 20 MG TAB PO SCH ×2 (08:39→21:14)
[2019-08-23] MEDS: SPIRONOLACTONE 25 MG TAB PO SCH (08:40)
[2019-08-23] MEDS: FUROSEMIDE 40 MG TAB PO SCH (08:41)
[2019-08-23] MEDS: LISINOPRIL 20 MG TAB PO SCH (08:41)
[2019-08-23 09:00] VITALS: BP 143/98
--- NOTE | 2019-08-23 10:49 | NUR ---
PATIENT IN BED, DR STEELE SAW PATIENT, POSSIBLE DISCHARGE TOMORROW. PATIENT AWARE.
[2019-08-23] MEDS: chlordiazePOXIDE HCL 5 MG CAP PO SCH ×2 (11:34→16:43)
[2019-08-23] MEDS: FOLIC ACID 1 MG TAB PO SCH (11:35)
[2019-08-23] MEDS: THIAMINE HCL 100 MG TAB PO SCH (12:01)
--- NOTE | 2019-08-23 12:04 | NUR ---
SISTER AT BED SIDE, PROVIDED SUPPLIES SO PATIENT COULD CLEAN UP.
[2019-08-23 13:00] VITALS: BP 143/93
[2019-08-23 17:00] VITALS: BP 156/97
[2019-08-23 20:10] VITALS: BP 108/70
--- NOTE | 2019-08-23 20:10 | NUR ---
Opening Shift Note Assumed care of patient, awake and alert. No S/S of distress/SOB or pain. Patient is on 2 liters of oxygen via nasal cannula. Respirations even and unlabored. Instructed on POC and to call for assist PRN, will continue to monitor for changes Q1hr and PRN.
[2019-08-23] MEDS: ATORVASTATIN 20 MG TAB PO SCH (21:14)
[2019-08-23] MEDS: CEPHALEXIN 250 MG CAP PO SCH (21:14)
[2019-08-23 22:00] VITALS: BP 108/70
[2019-08-24] MEDS: chlordiazePOXIDE HCL 5 MG CAP PO SCH ×5 (00:16→23:25)
--- NOTE | 2019-08-24 04:28 | NUR ---
Endorsed care to Reuben SEVERINO. Report given. Patient has no signs of distress.
--- NOTE | 2019-08-24 04:42 | NUR ---
RECEIVED REPORT FROM OUTGOING CATTYMAN RN ASSUMING ROLE OF CARE OF PATIENT AT THIS TIME. PATIENT SHOWING NO SIGN OF DISTRESS, SHORTNESS OF BREATH AND PATIENT DENYING PAIN AT THIS TIME. PATIENT RESTING COMFORTABLY. WILL CONTINUE TO MONITOR PATIENT.
[2019-08-24 05:39] VITALS: BP 123/75
--- NOTE | 2019-08-24 07:00 | NUR ---
Opening Shift Note Received report on the patient. Awake lying in bed. Patient shows no signs of distress at this time. Discussed the plan of care with the patient. Bed in lowest position, side rails up x2, and the call light is within reach. Will continue to monitor.
[2019-08-24 07:30] VITALS: BP 143/98
[2019-08-24 09:00] VITALS: BP 120/82
[2019-08-24] MEDS: SILDENAFIL CITRATE 20 MG TAB PO SCH ×3 (09:43→20:42)
[2019-08-24] MEDS: CEPHALEXIN 250 MG CAP PO SCH ×2 (09:43→20:41)
[2019-08-24] MEDS: LISINOPRIL 20 MG TAB PO SCH (09:44)
[2019-08-24] MEDS: SPIRONOLACTONE 25 MG TAB PO SCH (09:44)
[2019-08-24] MEDS: ASPirin 81 mg TAB PO SCH (09:44)
[2019-08-24] MEDS: THIAMINE HCL 100 MG TAB PO SCH (09:44)
[2019-08-24] MEDS: FAMOTIDINE 20 MG TAB PO SCH ×2 (09:44→20:41)
[2019-08-24] MEDS: FOLIC ACID 1 MG TAB PO SCH (09:45)
[2019-08-24] MEDS: FUROSEMIDE 40 MG TAB PO SCH (09:45)
[2019-08-24] MEDS ORDERED: LOPERAMIDE HCL 2 MG CAP PO ONE (11:30)
[2019-08-24] MEDS ORDERED: FOLI1TAB6 PO (11:31)
[2019-08-24] MEDS ORDERED: THIA100T10 PO (11:31)
--- NOTE | 2019-08-24 12:00 | NUR ---
ASSUMED CARE OF PATIENT. PATIENT RESTING IN BED. NO S/S OF PAIN DISTRESS OR SOB AT THIS TIME. WILL CONTINUE TO MONITOR.
[2019-08-24 13:00] VITALS: BP 117/89
[2019-08-24 17:00] VITALS: BP 128/79
--- NOTE | 2019-08-24 18:44 | NUR ---
IV insertion: IV access obtained, via clean sterile technique by inserting 22 gauge catheter at RIGHT FOREARM BY MARYANN SEVERINO after 1 attempt. IV secured properly. No trauma to site. Patient tolerated well.
--- NOTE | 2019-08-24 19:06 | NUR ---
IV removal IV DC'd with clean sterile technique, catheter fully intact. Pressure dressing applied to site. Patient tolerated well.
--- NOTE | 2019-08-24 19:22 | NUR ---
CLOSING NOTE: PATIENT RESTING IN BED. NO S/S OF PAIN, SOB OR DISTRESS AT THIS TIME. CARE ENDORSED TO NOC RN.
[2019-08-24] MEDS: ATORVASTATIN 20 MG TAB PO SCH (20:41)
[2019-08-24 22:00] VITALS: BP 128/85
[2019-08-25 05:00] VITALS: BP 120/81
[2019-08-25] MEDS: chlordiazePOXIDE HCL 5 MG CAP PO SCH ×2 (06:01→13:43)
--- NOTE | 2019-08-25 07:00 | NUR ---
Opening Shift Report Received report on the patient. Awake lying in bed. Discussed the plan of care with the patient. Patient shows no signs of distress at this time. Bed in lowest position, side rails up x2, and the call light is within reach. Will continue to monitor.
[2019-08-25 07:30] VITALS: BP 143/98
[2019-08-25] MEDS ORDERED: MAGNESIUM SULFATE 1GM/100ML 100 ML IV ONE (08:00)
[2019-08-25 08:57] VITALS: BP 130/76
[2019-08-25] MEDS: SILDENAFIL CITRATE 20 MG TAB PO SCH (09:39)
[2019-08-25] MEDS: ASPirin 81 mg TAB PO SCH (09:40)
[2019-08-25] MEDS: FOLIC ACID 1 MG TAB PO SCH (09:40)
[2019-08-25] MEDS: SPIRONOLACTONE 25 MG TAB PO SCH (09:41)
[2019-08-25] MEDS: THIAMINE HCL 100 MG TAB PO SCH (09:41)
[2019-08-25] MEDS: CEPHALEXIN 250 MG CAP PO SCH (09:42)
[2019-08-25] MEDS: FUROSEMIDE 40 MG TAB PO SCH (09:43)
[2019-08-25] MEDS: FAMOTIDINE 20 MG TAB PO SCH (09:43)
[2019-08-25] MEDS: LISINOPRIL 20 MG TAB PO SCH (09:44)
[2019-08-25 11:52] VITALS: BP 130/76
[2019-08-25 12:47] VITALS: BP 114/75
--- NOTE | 2019-08-25 13:48 | NUR ---
[employer] [facility] and contact Kerry (patient's daughter) about home health services and walker delivery. Her number is .
--- NOTE | 2019-08-26 10:00 | NUR ---
re-assessment I called to check up on patient and patient informed me she never received her fww. I re-faxed to [facility]. Waiting on delivery now. Addendum: 08/27/19 at 1616 by Tara OWENS Amended: Links added.
--- NOTE | 2019-08-27 16:15 | NUR ---
re-assessment I called patient and provided her with the phone number to [facility] for caregiver and patient informed me she received fww last night. Addendum: 08/27/19 at 1616 by Tara OWENS Amended: Links added.
== END 2019-08-25 13:36 | disposition home health service (06) | DRG 433 ==
LOC: EDSEX 15:36 → EDBD 15:36 → ER 15:36 → MERGE 15:37 → TELE 15:37 → TELE-WESTW 23:13 → WEST WING 08-22 10:10
PROVIDERS: ADMIT Nurse Practitioner; ATTEND Internal Medicine
DX: K70.9 Alcoholic liver disease, unspecified (principal); E44.0 Moderate protein-calorie malnutrition; N39.0 Urinary tract infection, site not specified; E87.6 Hypokalemia; L89.152 Pressure ulcer of sacral region, stage 2; R62.7 Adult failure to thrive; R07.89 Other chest pain; F10.229 Alcohol dependence with intoxication, unspecified; I27.20 Pulmonary hypertension, unspecified; F32.9 Major depressive disorder, single episode, unspecified; I11.0 Hypertensive heart disease with heart failure; F41.9 Anxiety disorder, unspecified; I50.9 Heart failure, unspecified; Z90.710 Acquired absence of both cervix and uterus; Z91.19 Patient's noncompliance with other medical treatment and regimen; Z99.81 Dependence on supplemental oxygen; Z90.2 Acquired absence of lung [part of]
CPT/HCPCS: 36415; 71046; 78452; 80048; 80053; 80061; 80307; 80320; 81001; 83735; 83880; 84439; 84443; 84481; 84484; 85025; 85610; 85730; 87081; 87086; 93005; 93017; 93306; 96361; 96365; 96367; 97116; 97163; 97530; G0378; J0153; J0696

== ENCOUNTER → 2019-10-07 | Outpatient (CLI) | payer OTHER ==
[~2019-10-07] MED LIST changes: +AMLO10TA13 PO; +FOLI1TAB6 PO; +PAR20T PO; +SILD20TA2 PO; +THIA100T10 PO
[2019-10-07 14:47] LABS: Basophils # (auto) 0.1 10 ^3/uL (0-0.2); Basophils % (auto) 1.1 % (0.0-2.0); Eosinophils # (auto) 0.1 10 ^3/uL (0-0.8); Eosinophils % (auto) 2.2 % (0.0-7.0); Hemoglobin 13.9 g/dL (12.2-16.2); Lymphocytes # (auto) 1.3 10 ^3/uL (0.4-5.4); Lymphocytes % (auto) 25.8 % (10.0-50.0); Mean Corpuscular Hemoglobin 33.1 pg (28.0-32.0); Mean Corpuscular Volume 100.1 fL (80.0-100.0); Monocytes # (auto) 0.5 10 ^3/uL (0-1.3); Monocytes % (auto) 9.9 % (0.0-12.0); Neutrophils # (auto) 3.1 10 ^3/uL (1.6-8.6); Platelet Count (auto) 230 10^3/uL (140-450); Red Cell Distribution Width 14.2 % (11.8-14.3); White Blood Cell 5.1 10^3/uL (4.4-10.8)
[2019-10-07 15:04] LABS: Albumin 3.4 g/dL (3.4-5.0); Calcium 8.9 mg/dL (8.5-10.1); Potassium 4.4 mmol/L (3.5-5.1)
[2019-10-07 15:06] LABS: % Iron Saturation 50.4 % (15-50)
[2019-10-07 15:08] LABS: BUN/Creatinine Ratio 13.8; Bilirubin, Total 0.3 mg/dL (0.2-1.0); Total Protein 7.1 g/dL (6.4-8.2)
[2019-10-07 15:13] LABS: Ferritin 30.7 ng/mL (10-322); Folate (Folic Acid) > 24.00 ng/mL (5.38-24)
== END | disposition home or self-care (01) ==
LOC: LAB 14:22
PROVIDERS: ATTEND Internal Medicine
DX: E83.119 Hemochromatosis, unspecified (principal)
CPT/HCPCS: 36415; 80053; 82105; 82728; 82746; 83540; 83550; 85025

== ENCOUNTER → 2020-03-23 | Outpatient (CLI) | payer OTHER ==
[~2020-03-23] MED LIST changes: +CYANOCOBALAMIN (B-12) 1000 MCG/1 ML VIAL IM ONE; +CYANOCOBALAMIN (B-12) 1000 MCG/1 ML VIAL ONE; -LISI40TA PO; +LISI40TA11 PO
[2020-03-23 10:20] VITALS: BP 120/69
--- NOTE | 2020-03-23 10:20 | NUR ---
PT. TO [facility] CL[facility]IC FOR EVAL. AND TX. PER PROTOCOL AFTER PT. HAD CALLED THIS RN OVER THE WEEKEND C/O WORSENING SOB DESPITE BEING ON COMBINATION THERAPY FOR PAH. OF NOTE: PT'S SPOUSE IN LATE JANUARY. NEW MEDICATION OF ABILIFY WAS ADDED BY HER PCP FOR ANXIETY/SLIGHT DEPRESSION. PT. IS ON OPSUMIT 10MG PO DAILY AND SILDENAFIL 40MG TID. ORDERS RECEIVED AND CARRIED OUT. SEE NSG ASSESS.
--- NOTE | 2020-03-23 10:35 | NUR ---
PT. TO AND FROM XRAY VIA AMBULATION.
--- NOTE | 2020-03-23 10:45 | NUR ---
LABS DRAWN AND SENT PER MD ORDER.
--- NOTE | 2020-03-23 10:55 | NUR ---
6MWT DONE WITH ASSISTANCE BY THIS RN AND TECH AFTER PT. EXPERIENCED SOB WITH HYPERVENTILATION DURING TEST. O2 SATS NEVER WENT BELOW 95% DURING TEST, HOWEVER PT. WAS ONLY ABLE TO DO APPROX. 4 MIN. OF TEST WITH 120 METERS COMPLETED. SEE WORKSHEET FOR FURTHER DYSPNEA/FATIGUE DATA. AFTER 5 MIN. PT'S HR WAS BACK TO BASELINE.
--- NOTE | 2020-03-23 11:07 | NUR ---
MEDS: PT. MEDICATED WITH VIT. B12 1000MCG IM LFT DELT. PER MD ORDER.
[2020-03-23 11:20] VITALS: BP 108/74
--- NOTE | 2020-03-23 11:20 | NUR ---
Discharge Instructions See e-MAR for any mediations given with this visit. Patient education given on disease process. Patient verbalized understanding. Previous labs reviewed. Patient discharged in stable condition with after care instructions and follow up appointment. PT. HAS APPT. TOMORROW AM AT 10:[address] HUTSON AND ECHO AT 1300. THIS RN WILL BE WITH PT AT APPT.
[2020-03-23 12:07] LABS: Basophils # (auto) 0 10 ^3/uL (0-0.2); Basophils % (auto) 0.8 % (0.0-2.0); Eosinophils # (auto) 0.1 10 ^3/uL (0-0.8); Eosinophils % (auto) 1.1 % (0.0-7.0); Hemoglobin 12.6 g/dL (12.2-16.2); Lymphocytes # (auto) 1.1 10 ^3/uL (0.4-5.4); Lymphocytes % (auto) 23.7 % (10.0-50.0); Mean Corpuscular Hemoglobin 31.2 pg (28.0-32.0); Mean Corpuscular Hgb Conc. 33.9 g/dL (32.0-36.0); Mean Corpuscular Volume 92.1 fL (80.0-100.0); Monocytes # (auto) 0.4 10 ^3/uL (0-1.3); Monocytes % (auto) 7.4 % (0.0-12.0); Neutrophils # (auto) 3.2 10 ^3/uL (1.6-8.6); Platelet Count (auto) 247 10^3/uL (140-450); Red Blood Cells 4.02 10^6/uL (4.0-5.20); Red Cell Distribution Width 14.8 % (11.8-14.3); White Blood Cell 4.8 10^3/uL (4.4-10.8)
[2020-03-23 12:19] LABS: Potassium 4.1 mmol/L (3.5-5.1)
[2020-03-23 12:30] LABS: Albumin 3.5 g/dL (3.4-5.0); BUN/Creatinine Ratio 13.2; Bilirubin, Total 0.5 mg/dL (0.2-1.0); Calcium 8.8 mg/dL (8.5-10.1); Magnesium 2.1 mg/dL (1.6-2.6); Total Protein 7.2 g/dL (6.4-8.2)
== END | disposition home or self-care (01) ==
LOC: Rad HDHVI 10:11
PROVIDERS: ATTEND Internal Medicine Cardiovascular Disease
DX: I27.0 Primary pulmonary hypertension (principal); D64.9 Anemia, unspecified; E66.9 Obesity, unspecified
CPT/HCPCS: 36415; 71046; 80053; 82306; 82607; 83036; 83735; 83880; 85025; 94618; 96372; G0463; J3420

== ENCOUNTER → 2020-03-24 | Outpatient (CLI) | payer OTHER ==
[~2020-03-24] MED LIST changes: -CYANOCOBALAMIN (B-12) 1000 MCG/1 ML VIAL IM ONE; -CYANOCOBALAMIN (B-12) 1000 MCG/1 ML VIAL ONE
== END | disposition home or self-care (01) ==
LOC: Rad HDHVI 12:58
PROVIDERS: ATTEND Internal Medicine Cardiovascular Disease
DX: I10 Essential (primary) hypertension (principal); I40.9 Acute myocarditis, unspecified
CPT/HCPCS: 93306

== ENCOUNTER → 2020-05-12 | Outpatient (CLI) | payer OTHER ==
[2020-05-12 09:17] LABS: Basophils # (auto) 0.1 10 ^3/uL (0-0.2); Basophils % (auto) 0.8 % (0.0-2.0); Eosinophils # (auto) 0.1 10 ^3/uL (0-0.8); Hematocrit 42.9 % (36.0-46.0); Lymphocytes # (auto) 1.8 10 ^3/uL (0.4-5.4); Lymphocytes % (auto) 23.5 % (10.0-50.0); Mean Corpuscular Hemoglobin 30.6 pg (28.0-32.0); Mean Corpuscular Hgb Conc. 32.8 g/dL (32.0-36.0); Mean Corpuscular Volume 93.5 fL (80.0-100.0); Monocytes # (auto) 0.6 10 ^3/uL (0-1.3); Monocytes % (auto) 7.6 % (0.0-12.0); Neutrophils # (auto) 5.1 10 ^3/uL (1.6-8.6); Neutrophils % (auto) 67.1 % (37.0-80.0); Platelet Count (auto) 256 10^3/uL (140-450); Red Blood Cells 4.59 10^6/uL (4.0-5.20); Red Cell Distribution Width 17.5 % (11.8-14.3); White Blood Cell 7.5 10^3/uL (4.4-10.8)
[2020-05-12 11:04] LABS: Potassium 4.3 mmol/L (3.5-5.1)
[2020-05-12 11:12] LABS: Albumin 3.4 g/dL (3.4-5.0); Bilirubin, Total 0.6 mg/dL (0.2-1.0); Calcium 9.2 mg/dL (8.5-10.1); Total Protein 7.8 g/dL (6.4-8.2)
[2020-05-12 11:13] LABS: % Iron Saturation 94.2 % (15-50)
[2020-05-12 11:19] LABS: Folate (Folic Acid) 4.51 ng/mL (5.38-24)
== END | disposition home or self-care (01) ==
LOC: LAB 08:58
PROVIDERS: ATTEND Physician Assistant
DX: I11.0 Hypertensive heart disease with heart failure (principal); K70.9 Alcoholic liver disease, unspecified; F10.20 Alcohol dependence, uncomplicated; E83.119 Hemochromatosis, unspecified
CPT/HCPCS: 36415; 80053; 80061; 82607; 82746; 83540; 83550; 85025

== ENCOUNTER 2020-08-12 15:11 | Inpatient (IN) | payer OTHER ==
[~2020-08-12] VITALS: Ht 162.6 cm; Wt 94.0 kg
[~2020-08-12 15:11] MED LIST changes: +AMLO-489 PO; +AMLO-496 PO; -AMLO10TA13 PO; -AMLO5TAB15 PO
[2020-08-12] MEDS ORDERED: FAMOTIDINE INJECTION 40 MG in SODIUM CHL 0.9% 100 ML IV ONE (15:30)
[2020-08-12] MEDS ORDERED: SODIUM CHLORIDE 0.9% 1,000 ML IV ONE ×2 (15:30)
[2020-08-12] MEDS ORDERED: THIAMINE 100mg/ml INJ (200mg/2ml VIAL) IV ONE ×2 (15:30→18:30)
[2020-08-12 15:50] LABS: Basophils # (auto) 0.1 10 ^3/uL (0-0.2); Eosinophils # (auto) 0.1 10 ^3/uL (0-0.8); Lymphocytes # (auto) 1.2 10 ^3/uL (0.4-5.4); Neutrophils # (auto) 4.8 10 ^3/uL (1.6-8.6); White Blood Cell 6.8 10^3/uL (4.4-10.8)
[2020-08-12 15:53] LABS: Eosinophils % (auto) 1.6 % (0.0-7.0); Hematocrit 35.4 % (36.0-46.0); Lymphocytes % (auto) 17.5 % (10.0-50.0); Mean Corpuscular Hemoglobin 34.9 pg (28.0-32.0); Mean Corpuscular Volume 102.6 fL (80.0-100.0); Monocytes # (auto) 0.6 10 ^3/uL (0-1.3); Monocytes % (auto) 9.6 % (0.0-12.0); Neutrophils % (auto) 70.3 % (37.0-80.0); Platelet Count (auto) 216 10^3/uL (140-450); Red Blood Cells 3.45 10^6/uL (4.0-5.20)
[2020-08-12 16:04] LABS: Albumin 2.9 g/dL (3.4-5.0); Anion Gap 10 (5-15); Blood Urea Nitrogen 13 mg/dL (7-18); Calcium 7.8 mg/dL (8.5-10.1); Carbon Dioxide 22 mmol/L (21-32); Chloride 106 mmol/L (98-107); Glucose 100 mg/dL (74-106); Magnesium 1.4 mg/dL (1.6-2.6); Potassium 3.2 mmol/L (3.5-5.1); Sodium 138 mmol/L (136-145)
[2020-08-12 16:08] LABS: Alanine Aminotransferase 21 U/L (13-56); Alkaline Phosphatase 90 U/L (45-117); Aspartate Aminotransferase 42 U/L (15-37); BUN/Creatinine Ratio 20.6; Bilirubin, Total 0.4 mg/dL (0.2-1.0); GFR African American 119 mL/min; GFR Non-African American 98 mL/min; Total Protein 6.5 g/dL (6.4-8.2)
[2020-08-12 16:12] LABS: INR 1.08 (0.9-1.15); Partial Thromboplastin Time 26.8 sec (23.0-31.2)
[2020-08-12] MEDS ORDERED: PANTOPRAZOLE 40 MG/10 ML VIAL INJ IV SCH (16:15)
[2020-08-12] MEDS ORDERED: NITROGLYCERIN 0.4 MG SL TAB SL PRN (18:30)
[2020-08-12] MEDS ORDERED: PANTOPRAZOLE 40 MG/10 ML VIAL INJ IV ONE (18:30)
[2020-08-12] MEDS ORDERED: MORPHINE SULF INJ 2 MG/ML SYRINGE 1ML IV PRN ×2 (18:30)
[2020-08-12] MEDS: SODIUM CHLORIDE 0.9% 1,000 ML IV SCH (18:30)
[2020-08-12] MEDS ORDERED: traMADol HCL 50 MG TAB PO PRN (18:30)
[2020-08-12] MEDS ORDERED: cefTRIAXone 1GM/50ML D5W 50 ML IV ONE (18:30)
[2020-08-12] MEDS ORDERED: ONDANSETRON HCL 4 MG/2 ML VIAL IV PRN (18:30)
[2020-08-12] MEDS ORDERED: LORazepam 2MG/ML-1ML VIAL IV PRN (18:30)
[2020-08-12] MEDS ORDERED: chlordiazePOXIDE HCL 25 MG CAP PO PRN (18:30)
[2020-08-12 19:51] LABS: Amylase 38 U/L (25-115); Lipase 164 U/L (73-393)
[2020-08-12] MEDS: SILDENAFIL CITRATE 20 MG TAB PO SCH (20:26)
[2020-08-12] MEDS: POTASSIUM CHL 20MEQ/100ML 100 ML IV SCH ×2 (20:26→21:59)
[2020-08-12] MEDS ORDERED: PANTOPRAZOLE 40 MG TAB PO SCH (22:00)
[2020-08-12] MEDS: chlordiazePOXIDE HCL 5 MG CAP PO SCH (23:24)
[2020-08-13] MEDS: POTASSIUM CHL 20MEQ/100ML 100 ML IV SCH (00:35)
[2020-08-13 01:26] LABS: Hematocrit 33.2 % (36.0-46.0)
[2020-08-13 01:30] LABS: Hemoglobin 11.3 g/dL (12.2-16.2)
[2020-08-13] MEDS: SODIUM CHLORIDE 0.9% 1,000 ML IV SCH ×2 (04:30→14:47)
[2020-08-13] MEDS: chlordiazePOXIDE HCL 5 MG CAP PO SCH ×3 (05:15→10:51)
[2020-08-13 06:23] LABS: Eosinophils # (auto) 0.1 10 ^3/uL (0-0.8)
[2020-08-13 06:26] LABS: Basophils # (auto) 0.1 10 ^3/uL (0-0.2); Basophils % (auto) 0.9 % (0.0-2.0); Hematocrit 31.7 % (36.0-46.0); Hemoglobin 10.9 g/dL (12.2-16.2); Lymphocytes # (auto) 1.3 10 ^3/uL (0.4-5.4); Lymphocytes % (auto) 22.2 % (10.0-50.0); Mean Corpuscular Hemoglobin 35.9 pg (28.0-32.0); Mean Corpuscular Hgb Conc. 34.4 g/dL (32.0-36.0); Mean Corpuscular Volume 104.3 fL (80.0-100.0); Monocytes # (auto) 0.6 10 ^3/uL (0-1.3); Monocytes % (auto) 10.5 % (0.0-12.0); Neutrophils # (auto) 3.8 10 ^3/uL (1.6-8.6); Neutrophils % (auto) 64.4 % (37.0-80.0); Platelet Count (auto) 198 10^3/uL (140-450); Red Blood Cells 3.04 10^6/uL (4.0-5.20); Red Cell Distribution Width 16.6 % (11.8-14.3); White Blood Cell 5.8 10^3/uL (4.4-10.8)
[2020-08-13 06:39] LABS: Potassium 3.9 mmol/L (3.5-5.1)
[2020-08-13 06:46] LABS: Albumin 2.7 g/dL (3.4-5.0); BUN/Creatinine Ratio 23.9; Bilirubin, Total 0.4 mg/dL (0.2-1.0); Calcium 7.8 mg/dL (8.5-10.1); Total Protein 5.9 g/dL (6.4-8.2)
[2020-08-13] MEDS: SILDENAFIL CITRATE 20 MG TAB PO SCH ×3 (08:00→20:18)
[2020-08-13] MEDS ORDERED: diphenhdrAMINE HCL 50 MG/1 ML VL ONE (08:53)
[2020-08-13] MEDS ORDERED: LIDOCAINE VISCOUS 2% 15ML UD ONE (08:53)
[2020-08-13] MEDS: cefTRIAXone 1GM/50ML D5W 50 ML IV SCH (09:04)
[2020-08-13] MEDS ORDERED: PANTOPRAZOLE 40 MG/10 ML VIAL INJ IV SCH (10:00)
[2020-08-13] MEDS ORDERED: THIAMINE 100mg/ml INJ (200mg/2ml VIAL) IV SCH (10:00)
[2020-08-13] MEDS: fentaNYL CITRATE 100 MCG/2 ML VL ONE ×2 (11:17→11:20)
[2020-08-13] MEDS: MIDAZOLAM HCL 5 MG/ML-1ML VIAL ONE ×2 (11:17→11:20)
[2020-08-13] MEDS: SUCRALFATE 1 GM/10 ML ORAL SUSP PO SCH ×3 (11:30→23:15)
[2020-08-13 12:30] LABS: Hemoglobin 10.8 g/dL (12.2-16.2)
[2020-08-13] MEDS ORDERED: FOLIC ACID 1 MG, MAGNESIUM SULF SDV 50% 8 MEQ, THIAMINE INJ 100 MG in SODIUM CHLORIDE 0... INJ SCH (18:00)
[2020-08-13] MEDS: PANTOPRAZOLE 40 MG TAB PO SCH (22:12)
[2020-08-13 22:24] VITALS: BP 126/83
[2020-08-13 22:30] VITALS: BP 126/83
[2020-08-14] MEDS: SODIUM CHLORIDE 0.9% 1,000 ML IV SCH ×2 (00:30→10:30)
[2020-08-14] MEDS: chlordiazePOXIDE HCL 5 MG CAP PO SCH ×4 (00:51→18:01)
[2020-08-14 05:00] VITALS: BP 105/72
[2020-08-14] MEDS: SUCRALFATE 1 GM/10 ML ORAL SUSP PO SCH ×3 (07:22→17:25)
[2020-08-14 07:30] LABS: Basophils # (auto) 0 10 ^3/uL (0-0.2); Eosinophils # (auto) 0.2 10 ^3/uL (0-0.8); Hemoglobin 10.8 g/dL (12.2-16.2); Lymphocytes # (auto) 1.1 10 ^3/uL (0.4-5.4); Mean Corpuscular Hemoglobin 35.4 pg (28.0-32.0); Mean Corpuscular Hgb Conc. 34.1 g/dL (32.0-36.0); Mean Corpuscular Volume 103.8 fL (80.0-100.0); Monocytes # (auto) 0.5 10 ^3/uL (0-1.3); Neutrophils # (auto) 3.2 10 ^3/uL (1.6-8.6); Red Cell Distribution Width 16.3 % (11.8-14.3); White Blood Cell 5.1 10^3/uL (4.4-10.8)
[2020-08-14 07:35] LABS: Basophils % (auto) 0.8 % (0.0-2.0); Eosinophils % (auto) 4.5 % (0.0-7.0); Hematocrit 31.6 % (36.0-46.0); Lymphocytes % (auto) 20.8 % (10.0-50.0); Neutrophils % (auto) 63.9 % (37.0-80.0); Platelet Count (auto) 194 10^3/uL (140-450); Red Blood Cells 3.04 10^6/uL (4.0-5.20)
[2020-08-14 07:48] LABS: Albumin 2.7 g/dL (3.4-5.0); Calcium 7.7 mg/dL (8.5-10.1); Magnesium 1.9 mg/dL (1.6-2.6); Potassium 3.5 mmol/L (3.5-5.1)
[2020-08-14 07:52] LABS: BUN/Creatinine Ratio 11.5; Bilirubin, Total 0.4 mg/dL (0.2-1.0); Phosphorus 2.4 mg/dL (2.5-4.90)
[2020-08-14] MEDS: SILDENAFIL CITRATE 20 MG TAB PO SCH ×2 (07:52→13:41)
[2020-08-14 08:00] VITALS: BP 119/73
[2020-08-14] MEDS: cefTRIAXone 1GM/50ML D5W 50 ML IV SCH (08:55)
[2020-08-14 09:00] VITALS: BP 119/73
[2020-08-14] MEDS: PANTOPRAZOLE 40 MG TAB PO SCH (09:33)
[2020-08-14] MEDS ORDERED: MULTIPLE VITAMIN TAB PO ONE (10:45)
[2020-08-14] MEDS ORDERED: FOLIC ACID 1 MG TAB PO ONE (10:45)
[2020-08-14] MEDS ORDERED: THIAMINE HCL 100 MG TAB PO ONE (10:45)
[2020-08-14 13:00] VITALS: BP 145/87
[2020-08-14] MEDS ORDERED: POTASSIUM PHOSPHATE 22 MEQ in SODIUM CHL 0.9% 100 ML IV ONE (14:00)
[2020-08-14] MEDS ORDERED: GABAPENTIN 100 MG CAP PO SCH (14:00)
[2020-08-14 16:27] VITALS: BP 128/76
[2020-08-14 16:43] VITALS: BP 128/76
[2020-08-14] MEDS ORDERED: QUEtiapine FUMARATE 25 MG TAB PO SCH (22:00)
== END 2020-08-14 19:35 | disposition home or self-care (01) | DRG 368 ==
LOC: ER 15:11 → EDBD 15:11 → TELE 18:17 → TELE-CENTR 08-13 22:18
PROVIDERS: ADMIT Internal Medicine; ATTEND Internal Medicine
PROC: 0DJ08ZZ Inspection of Upper Intestinal Tract, Via Natural or Artificial Opening Endoscopic (ICD-10-PCS; principal; 2020-08-13 11:23)
DX: K20.91 Esophagitis, unspecified with bleeding (principal); K25.4 Chronic or unspecified gastric ulcer with hemorrhage; K29.71 Gastritis, unspecified, with bleeding; E87.6 Hypokalemia; I10 Essential (primary) hypertension; K70.9 Alcoholic liver disease, unspecified; F10.20 Alcohol dependence, uncomplicated; F32.9 Major depressive disorder, single episode, unspecified; E66.9 Obesity, unspecified; I27.20 Pulmonary hypertension, unspecified; K57.90 Diverticulosis of intestine, part unspecified, without perforation or abscess without bleeding; Z83.6 Family history of other diseases of the respiratory system; Z80.0 Family history of malignant neoplasm of digestive organs; Z20.822 Contact with and (suspected) exposure to COVID-19; Z82.49 Family history of ischemic heart disease and other diseases of the circulatory system; Z90.710 Acquired absence of both cervix and uterus; K74.60 Unspecified cirrhosis of liver; Z79.899 Other long term (current) drug therapy; Z68.35 Body mass index [BMI] 35.0-35.9, adult
CPT/HCPCS: 36415; 71045; 74176; 80053; 80320; 82150; 83690; 83735; 84100; 84484; 85014; 85018; 85025; 85045; 85610; 85652; 85730; 86677; 86850; 86900; 86901; 87426; 96361; 96365; 96375; C9113; G0378; J0696; J2250; J3480; J3490

== ENCOUNTER → 2020-08-16 | Outpatient (CLI) | payer OTHER ==
[~2020-08-16] MED LIST changes: -ALPR0.5T PO
[2020-08-16 14:22] LABS: Eosinophils # (auto) 0.2 10 ^3/uL (0-0.8); Hemoglobin 11.4 g/dL (12.2-16.2); Monocytes # (auto) 0.6 10 ^3/uL (0-1.3); Monocytes % (auto) 8.8 % (0.0-12.0); Neutrophils # (auto) 4.1 10 ^3/uL (1.6-8.6)
[2020-08-16 14:24] LABS: Basophils # (auto) 0.1 10 ^3/uL (0-0.2); Basophils % (auto) 0.8 % (0.0-2.0); Eosinophils % (auto) 3.4 % (0.0-7.0); Hematocrit 33.7 % (36.0-46.0); Lymphocytes # (auto) 1.4 10 ^3/uL (0.4-5.4); Lymphocytes % (auto) 22.5 % (10.0-50.0); Mean Corpuscular Hgb Conc. 33.7 g/dL (32.0-36.0); Neutrophils % (auto) 64.5 % (37.0-80.0); Platelet Count (auto) 269 10^3/uL (140-450); Red Blood Cells 3.24 10^6/uL (4.0-5.20); Red Cell Distribution Width 15.9 % (11.8-14.3); White Blood Cell 6.3 10^3/uL (4.4-10.8)
== END | disposition home or self-care (01) ==
LOC: LAB 13:57
PROVIDERS: ATTEND Internal Medicine
DX: E83.110 Hereditary hemochromatosis (principal)
CPT/HCPCS: 36415; 85025

== ENCOUNTER 2020-09-30 13:09 | Emergency (ER) | payer OTHER ==
[~2020-09-30] VITALS: Ht 162.6 cm; Wt 81.6 kg
[2020-09-30 14:06] LABS: Basophils # (auto) 0 10 ^3/uL (0-0.2); Basophils % (auto) 0.7 % (0.0-2.0); Eosinophils # (auto) 0.2 10 ^3/uL (0-0.8); Eosinophils % (auto) 3.5 % (0.0-7.0); Hematocrit 39.9 % (36.0-46.0); Hemoglobin 13.1 g/dL (12.2-16.2); Lymphocytes # (auto) 1.9 10 ^3/uL (0.4-5.4); Lymphocytes % (auto) 38.5 % (10.0-50.0); Mean Corpuscular Hemoglobin 31.4 pg (28.0-32.0); Mean Corpuscular Volume 95.3 fL (80.0-100.0); Monocytes # (auto) 0.3 10 ^3/uL (0-1.3); Monocytes % (auto) 6.8 % (0.0-12.0); Neutrophils # (auto) 2.5 10 ^3/uL (1.6-8.6); Neutrophils % (auto) 50.5 % (37.0-80.0); Nucleated Red Blood Cells % 0.1 %; Platelet Count (auto) 187 10^3/uL (140-450); Red Blood Cells 4.19 10^6/uL (4.0-5.20); Red Cell Distribution Width 16.1 % (11.8-14.3); White Blood Cell 4.9 10^3/uL (4.4-10.8)
[2020-09-30 14:19] LABS: Albumin 3.3 g/dL (3.4-5.0); Anion Gap 10 (5-15); Blood Urea Nitrogen 5 mg/dL (7-18); Calcium 8.1 mg/dL (8.5-10.1); Carbon Dioxide 26 mmol/L (21-32); Chloride 104 mmol/L (98-107); Glucose 89 mg/dL (74-106); Potassium 4.2 mmol/L (3.5-5.1); Sodium 140 mmol/L (136-145)
[2020-09-30 14:20] LABS: Alanine Aminotransferase 25 U/L (13-56); Aspartate Aminotransferase 33 U/L (15-37); BUN/Creatinine Ratio 9.1; GFR African American 139 mL/min; GFR Non-African American 115 mL/min; INR 1.24 (0.9-1.15)
[2020-09-30 14:24] LABS: Alkaline Phosphatase 135 U/L (45-117); Bilirubin, Total 0.3 mg/dL (0.2-1.0); Total Protein 7.5 g/dL (6.4-8.2)
[2020-09-30 17:13] VITALS: BP 124/85
[2020-09-30 17:43] LABS: Urine Bacteria FEW /hpf (None Seen); Urine Blood Negative /uL (Negative); Urine Specific Gravity 1.004 (1.001-1.035); Urine WBC 1 /hpf (0 - 5)
== END 2020-09-30 18:03 | disposition home or self-care (01) ==
LOC: EDBD 13:09 → ER 13:09
DX: I10 Essential (primary) hypertension (principal); Z90.710 Acquired absence of both cervix and uterus; Z90.89 Acquired absence of other organs; Z79.899 Other long term (current) drug therapy; W19.XXXA Unspecified fall, initial encounter; Y93.89 Activity, other specified; Y99.8 Other external cause status; Y92.89 Other specified places as the place of occurrence of the external cause
CPT/HCPCS: 36415; 71045; 72192; 80053; 81001; 83880; 84484; 85025; 85610; 85730

== ENCOUNTER → 2020-10-11 | Outpatient (CLI) | payer OTHER ==
[2020-10-11 10:46] LABS: Basophils # (auto) 0 10 ^3/uL (0-0.2); Basophils % (auto) 0.6 % (0.0-2.0); Eosinophils # (auto) 0.1 10 ^3/uL (0-0.8); Eosinophils % (auto) 1.6 % (0.0-7.0); Hematocrit 36.9 % (36.0-46.0); Hemoglobin 12.3 g/dL (12.2-16.2); Lymphocytes % (auto) 20.4 % (10.0-50.0); Mean Corpuscular Hemoglobin 31.2 pg (28.0-32.0); Mean Corpuscular Hgb Conc. 33.3 g/dL (32.0-36.0); Mean Corpuscular Volume 93.7 fL (80.0-100.0); Monocytes # (auto) 0.4 10 ^3/uL (0-1.3); Monocytes % (auto) 7.6 % (0.0-12.0); Neutrophils # (auto) 3.6 10 ^3/uL (1.6-8.6); Neutrophils % (auto) 69.8 % (37.0-80.0); Nucleated Red Blood Cells % 0.1 %; Platelet Count (auto) 159 10^3/uL (140-450); Red Blood Cells 3.93 10^6/uL (4.0-5.20); Red Cell Distribution Width 16.9 % (11.8-14.3); White Blood Cell 5.1 10^3/uL (4.4-10.8)
[2020-10-11 11:21] LABS: % Iron Saturation 36.5 % (15-50)
[2020-10-11 11:24] LABS: Potassium 3.6 mmol/L (3.5-5.1)
[2020-10-11 11:46] LABS: Albumin 3.2 g/dL (3.4-5.0); BUN/Creatinine Ratio 12.1; Calcium 8.4 mg/dL (8.5-10.1); Total Protein 6.9 g/dL (6.4-8.2)
[2020-10-11 13:11] LABS: Hepatitis A Ab IgM Negative; Hepatitis B Core IgM Negative; Hepatitis B Surface Antigen Negative (Negative)
[2020-10-11 13:12] LABS: Hepatitis C Antibody Negative (Negative)
== END | disposition home or self-care (01) ==
LOC: LAB 10:18
PROVIDERS: ATTEND Internal Medicine
DX: E83.110 Hereditary hemochromatosis (principal)
CPT/HCPCS: 36415; 80053; 80074; 82105; 82728; 83540; 83550; 83615; 85025

== ENCOUNTER 2020-10-13 17:12 | Emergency (ER) | payer OTHER ==
[~2020-10-13] VITALS: Ht 162.6 cm; Wt 88.5 kg
[2020-10-13 18:39] LABS: Basophils # (auto) 0 10 ^3/uL (0-0.2); Basophils % (auto) 0.5 % (0.0-2.0); Eosinophils # (auto) 0.2 10 ^3/uL (0-0.8); Eosinophils % (auto) 2.8 % (0.0-7.0); Hematocrit 34.8 % (36.0-46.0); Hemoglobin 11.5 g/dL (12.2-16.2); Lymphocytes # (auto) 1.8 10 ^3/uL (0.4-5.4); Lymphocytes % (auto) 27.8 % (10.0-50.0); Mean Corpuscular Hgb Conc. 33.1 g/dL (32.0-36.0); Mean Corpuscular Volume 93.6 fL (80.0-100.0); Monocytes # (auto) 0.6 10 ^3/uL (0-1.3); Neutrophils # (auto) 3.7 10 ^3/uL (1.6-8.6); Neutrophils % (auto) 58.9 % (37.0-80.0); Nucleated Red Blood Cells % 0.2 %; Platelet Count (auto) 169 10^3/uL (140-450); Red Blood Cells 3.72 10^6/uL (4.0-5.20); Red Cell Distribution Width 17.6 % (11.8-14.3); White Blood Cell 6.3 10^3/uL (4.4-10.8)
[2020-10-13 18:51] LABS: Alanine Aminotransferase 24 U/L (13-56); Albumin 3.1 g/dL (3.4-5.0); Anion Gap 9 (5-15); Aspartate Aminotransferase 48 U/L (15-37); BUN/Creatinine Ratio 6.8; Blood Urea Nitrogen 4 mg/dL (7-18); Carbon Dioxide 26 mmol/L (21-32); Chloride 104 mmol/L (98-107); GFR African American 128 mL/min; GFR Non-African American 106 mL/min; Glucose 138 mg/dL (74-106); Potassium 3.8 mmol/L (3.5-5.1); Sodium 139 mmol/L (136-145)
[2020-10-13 18:59] LABS: Alkaline Phosphatase 139 U/L (45-117); Bilirubin, Total 0.4 mg/dL (0.2-1.0)
[2020-10-13] MEDS ORDERED: KETOROLAC TROMETH 30 MG/ML 1ML VIAL IV ONE (20:15)
[2020-10-13] MEDS ORDERED: ACETAMINOPHEN 500 MG TAB PO ONE (20:15)
[2020-10-14 02:00] VITALS: BP 105/77
== END 2020-10-14 02:38 | disposition home or self-care (01) ==
LOC: EDSEX 17:12 → EDBD 17:12 → ER 17:12
DX: F10.920 Alcohol use, unspecified with intoxication, uncomplicated (principal); I10 Essential (primary) hypertension; Z90.710 Acquired absence of both cervix and uterus; Z79.899 Other long term (current) drug therapy; W19.XXXA Unspecified fall, initial encounter; Y93.89 Activity, other specified; Y92.89 Other specified places as the place of occurrence of the external cause; Y99.8 Other external cause status
CPT/HCPCS: 36415; 72125; 72131; 80053; 80320; 84484; 85025; 93005; 96374; 99285; J1885

== ENCOUNTER 2020-10-26 15:55 | Observation (INO) | payer OTHER ==
[~2020-10-26] VITALS: Ht 162.6 cm; Wt 91.4 kg
[2020-10-26 17:57] LABS: Basophils # (auto) 0 10 ^3/uL (0-0.2); Basophils % (auto) 0.6 % (0.0-2.0); Eosinophils # (auto) 0.2 10 ^3/uL (0-0.8); Eosinophils % (auto) 3.4 % (0.0-7.0); Hematocrit 34.5 % (36.0-46.0); Hemoglobin 11.4 g/dL (12.2-16.2); Lymphocytes # (auto) 1.1 10 ^3/uL (0.4-5.4); Lymphocytes % (auto) 20.5 % (10.0-50.0); Mean Corpuscular Hemoglobin 31.1 pg (28.0-32.0); Mean Corpuscular Hgb Conc. 33.1 g/dL (32.0-36.0); Mean Corpuscular Volume 94.1 fL (80.0-100.0); Monocytes # (auto) 0.6 10 ^3/uL (0-1.3); Monocytes % (auto) 10.3 % (0.0-12.0); Neutrophils # (auto) 3.5 10 ^3/uL (1.6-8.6); Neutrophils % (auto) 65.2 % (37.0-80.0); Nucleated Red Blood Cells % 0.3 %; Platelet Count (auto) 267 10^3/uL (140-450); Red Blood Cells 3.66 10^6/uL (4.0-5.20); Red Cell Distribution Width 19.1 % (11.8-14.3); White Blood Cell 5.4 10^3/uL (4.4-10.8)
[2020-10-26 18:06] LABS: Anion Gap 8 (5-15); Blood Urea Nitrogen 19 mg/dL (7-18); Calcium 8.5 mg/dL (8.5-10.1); Carbon Dioxide 29 mmol/L (21-32); Chloride 97 mmol/L (98-107); Glucose 122 mg/dL (74-106); Potassium 5.2 mmol/L (3.5-5.1); Sodium 134 mmol/L (136-145)
[2020-10-26 18:11] LABS: BUN/Creatinine Ratio 11.4; GFR African American 39 mL/min; GFR Non-African American 32 mL/min
[2020-10-26 18:28] LABS: Calcium 8.6 mg/dL (8.5-10.1); Potassium 5.2 mmol/L (3.5-5.1)
[2020-10-26 18:34] LABS: Albumin 3.3 g/dL (3.4-5.0); BUN/Creatinine Ratio 10.8; Bilirubin, Total 0.5 mg/dL (0.2-1.0); Total Protein 7.5 g/dL (6.4-8.2)
[2020-10-26 18:36] LABS: INR 1.11 (0.9-1.15); Partial Thromboplastin Time 27.3 sec (23.0-31.2)
[2020-10-26] MEDS ORDERED: MORPHINE SULF INJ 2 MG/ML SYRINGE 1ML IV PRN (19:45)
[2020-10-26] MEDS ORDERED: HYDROcodone-ACET 5/325MG TAB PO PRN (19:45)
[2020-10-26] MEDS ORDERED: ONDANSETRON HCL 4 MG/2 ML VIAL IV PRN (19:45)
[2020-10-26] MEDS ORDERED: ACETAMINOPHEN 500 MG TAB PO PRN (19:45)
[2020-10-26] MEDS ORDERED: DOCUSATE SOD 100 MG CAP PO PRN (19:45)
[2020-10-26] MEDS: FOLIC ACID 1 MG, MULTIPLE VITAMIN 10 ML, MAGNESIUM SULF SDV 50% 8 MEQ, THIAMINE INJ 100... INJ SCH ×5 (20:25)
[2020-10-27 06:41] LABS: Potassium 4.4 mmol/L (3.5-5.1)
[2020-10-27 06:43] LABS: BUN/Creatinine Ratio 17.5
[2020-10-27] MEDS ORDERED: PARoxetine 20 MG TAB PO SCH (10:00)
[2020-10-27] MEDS ORDERED: PANTOPRAZOLE 40 MG TAB PO SCH (10:00)
[2020-10-27 10:07] VITALS: BP 134/70
[2020-10-27 12:41] VITALS: BP 107/66
[2020-10-27] MEDS: FOLIC ACID 1 MG, MULTIPLE VITAMIN 10 ML, MAGNESIUM SULF SDV 50% 8 MEQ, THIAMINE INJ 100... INJ SCH ×5 (14:10)
[2020-10-27 17:00] VITALS: BP 123/85
[2020-10-27 20:00] VITALS: BP 123/85
== END 2020-10-27 23:35 | disposition home or self-care (01) ==
LOC: EDBD 15:55 → ER 15:55 → OVERFLOW 19:31 → EAST 10-27 09:50
PROVIDERS: ADMIT Nurse Practitioner Acute Care; ATTEND Internal Medicine
DX: I95.89 Other hypotension (principal); Z20.822 Contact with and (suspected) exposure to COVID-19; R55 Syncope and collapse; K70.30 Alcoholic cirrhosis of liver without ascites; I12.9 Hypertensive chronic kidney disease with stage 1 through stage 4 chronic kidney disease, or unspecified chronic kidney disease; N18.30 Chronic kidney disease, stage 3 unspecified; R73.9 Hyperglycemia, unspecified; E87.5 Hyperkalemia; I27.20 Pulmonary hypertension, unspecified; D64.9 Anemia, unspecified; J84.10 Pulmonary fibrosis, unspecified; F10.20 Alcohol dependence, uncomplicated; F41.9 Anxiety disorder, unspecified; F32.9 Major depressive disorder, single episode, unspecified; I25.10 Atherosclerotic heart disease of native coronary artery without angina pectoris; E83.119 Hemochromatosis, unspecified; E78.5 Hyperlipidemia, unspecified; Z87.11 Personal history of peptic ulcer disease; Z90.710 Acquired absence of both cervix and uterus; Z79.899 Other long term (current) drug therapy
CPT/HCPCS: 36415; 70450; 71045; 80048; 80053; 82306; 83036; 83735; 83880; 84439; 84443; 84484; 85025; 85610; 85730; 87426; 93005; 96365; 96366; 99285; G0378; J3411; J3475; J7070

== ENCOUNTER → 2020-12-28 | Outpatient (CLI) | payer OTHER ==
[~2020-12-28] MED LIST changes: -AMLO-489 PO; -AMLO-496 PO; -LISI40TA11 PO; -SILD20TA2 PO; -SPIR50TA5 PO
[2020-12-28 09:32] LABS: Basophils # (auto) 0.1 10 ^3/uL (0-0.2); Basophils % (auto) 0.6 % (0.0-2.0); Eosinophils # (auto) 0 10 ^3/uL (0-0.8); Hematocrit 37.3 % (36.0-46.0); Hemoglobin 12.4 g/dL (12.2-16.2); Lymphocytes # (auto) 1.6 10 ^3/uL (0.4-5.4); Lymphocytes % (auto) 17.7 % (10.0-50.0); Mean Corpuscular Hemoglobin 29.5 pg (28.0-32.0); Mean Corpuscular Hgb Conc. 33.4 g/dL (32.0-36.0); Mean Corpuscular Volume 88.2 fL (80.0-100.0); Monocytes # (auto) 0.7 10 ^3/uL (0-1.3); Monocytes % (auto) 7.7 % (0.0-12.0); Neutrophils # (auto) 6.5 10 ^3/uL (1.6-8.6); Nucleated Red Blood Cells % 0.2 %; Red Blood Cells 4.22 10^6/uL (4.0-5.20); Red Cell Distribution Width 18.3 % (11.8-14.3); White Blood Cell 8.8 10^3/uL (4.4-10.8)
[2020-12-28 10:38] LABS: % Iron Saturation 29.8 % (15-50)
[2020-12-28 10:42] LABS: Potassium 3.5 mmol/L (3.5-5.1)
[2020-12-28 10:50] LABS: Albumin 3.9 g/dL (3.4-5.0); BUN/Creatinine Ratio 18.9; Bilirubin, Total 0.6 mg/dL (0.2-1.0); Calcium 8.8 mg/dL (8.5-10.1)
== END | disposition home or self-care (01) ==
LOC: LAB 09:12
PROVIDERS: ATTEND Internal Medicine
DX: E83.110 Hereditary hemochromatosis (principal)
CPT/HCPCS: 36415; 80053; 82728; 83540; 83550; 83615; 85025

== ENCOUNTER → 2021-01-31 | Outpatient (CLI) | payer OTHER ==
[2021-01-31 11:49] LABS: Basophils # (auto) 0.1 10 ^3/uL (0-0.2); Basophils % (auto) 1.1 % (0.0-2.0); Eosinophils # (auto) 0.2 10 ^3/uL (0-0.8); Eosinophils % (auto) 3.3 % (0.0-7.0); Hematocrit 37.6 % (36.0-46.0); Lymphocytes # (auto) 1.2 10 ^3/uL (0.4-5.4); Lymphocytes % (auto) 23.5 % (10.0-50.0); Mean Corpuscular Hemoglobin 28.6 pg (28.0-32.0); Mean Corpuscular Hgb Conc. 31.8 g/dL (32.0-36.0); Monocytes # (auto) 0.5 10 ^3/uL (0-1.3); Monocytes % (auto) 10.7 % (0.0-12.0); Neutrophils # (auto) 3.2 10 ^3/uL (1.6-8.6); Neutrophils % (auto) 61.4 % (37.0-80.0); Nucleated Red Blood Cells % 0.1 %; Red Blood Cells 4.18 10^6/uL (4.0-5.20); Red Cell Distribution Width 16.6 % (11.8-14.3); White Blood Cell 5.1 10^3/uL (4.4-10.8)
[2021-01-31 11:57] LABS: INR 1.14 (0.9-1.15); Partial Thromboplastin Time 26.7 sec (23.6-33.0)
[2021-01-31 12:07] LABS: Calcium 9.1 mg/dL (8.5-10.1); Potassium 4.7 mmol/L (3.5-5.1)
[2021-01-31 12:13] LABS: Albumin 3.1 g/dL (3.4-5.0); BUN/Creatinine Ratio 9.1; Bilirubin, Total 0.4 mg/dL (0.2-1.0); Total Protein 7.4 g/dL (6.4-8.2)
== END | disposition home or self-care (01) ==
LOC: LAB 11:08
PROVIDERS: ATTEND Specialist
DX: Z01.812 Encounter for preprocedural laboratory examination (principal); H25.12 Age-related nuclear cataract, left eye; D68.9 Coagulation defect, unspecified; Z79.01 Long term (current) use of anticoagulants
CPT/HCPCS: 36415; 80053; 85025; 85610; 85730

== ENCOUNTER → 2021-04-27 | Day surgery (SDC) | payer OTHER ==
[~2021-04-27] VITALS: Ht 162.6 cm; Wt 86.2 kg
[~2021-04-27] MED LIST changes: +GABA300C10 PO; +LISI40TA11 PO; +PANT40TA2 PO; -PAR20T PO; +QUET50TA5 PO; +SUCR1SUS5 PO
[2021-04-27] MEDS: fentaNYL CITRATE 100 MCG/2 ML VL ONE ×3 (14:08→14:14)
[2021-04-27] MEDS: MIDAZOLAM HCL 5 MG/ML-1ML VIAL ONE ×3 (14:08→14:14)
[2021-04-27] MEDS: diphenhdrAMINE HCL 50 MG/1 ML VL ONE ×2 (14:11→14:14)
[2021-04-27 15:00] VITALS: BP 147/76
== END | disposition home or self-care (01) ==
LOC: GI 12:55
PROVIDERS: ATTEND Internal Medicine Gastroenterology
DX: Z12.11 Encounter for screening for malignant neoplasm of colon (principal); D12.2 Benign neoplasm of ascending colon; D12.3 Benign neoplasm of transverse colon; K57.30 Diverticulosis of large intestine without perforation or abscess without bleeding; K63.89 Other specified diseases of intestine; K64.8 Other hemorrhoids; K21.9 Gastro-esophageal reflux disease without esophagitis; I10 Essential (primary) hypertension; K44.9 Diaphragmatic hernia without obstruction or gangrene; I25.10 Atherosclerotic heart disease of native coronary artery without angina pectoris; J43.9 Emphysema, unspecified; F41.9 Anxiety disorder, unspecified; F32.9 Major depressive disorder, single episode, unspecified; Z90.710 Acquired absence of both cervix and uterus; Z79.899 Other long term (current) drug therapy; Z20.822 Contact with and (suspected) exposure to COVID-19; Z68.32 Body mass index [BMI] 32.0-32.9, adult
CPT/HCPCS: 45385; J1200; J2250; J3010; J7030; U0003; 99152; 99153

== ENCOUNTER → 2021-06-20 | Outpatient (CLI) | payer OTHER ==
[2021-06-20 12:59] LABS: Basophils # (auto) 0 10 ^3/uL (0-0.2); Eosinophils # (auto) 0.1 10 ^3/uL (0-0.8); Eosinophils % (auto) 2.3 % (0.0-7.0); Hematocrit 37.8 % (36.0-46.0); Hemoglobin 12.3 g/dL (12.2-16.2); Lymphocytes # (auto) 1.1 10 ^3/uL (0.4-5.4); Lymphocytes % (auto) 25.5 % (10.0-50.0); Mean Corpuscular Hemoglobin 29.1 pg (28.0-32.0); Mean Corpuscular Hgb Conc. 32.6 g/dL (32.0-36.0); Mean Corpuscular Volume 89.5 fL (80.0-100.0); Monocytes # (auto) 0.4 10 ^3/uL (0-1.3); Monocytes % (auto) 9.2 % (0.0-12.0); Neutrophils # (auto) 2.8 10 ^3/uL (1.6-8.6); Red Blood Cells 4.23 10^6/uL (4.0-5.20); Red Cell Distribution Width 17.1 % (11.8-14.3); White Blood Cell 4.5 10^3/uL (4.4-10.8)
[2021-06-20 13:14] LABS: INR 1.2 (0.9-1.15); Partial Thromboplastin Time 27.3 sec (23.6-33.0)
[2021-06-20 13:35] LABS: Albumin 3.8 g/dL (3.4-5.0); Calcium 9.2 mg/dL (8.5-10.1); Potassium 4.7 mmol/L (3.5-5.1)
[2021-06-20 13:39] LABS: BUN/Creatinine Ratio 13.3; Bilirubin, Total 0.9 mg/dL (0.2-1.0); Total Protein 7.9 g/dL (6.4-8.2)
== END | disposition home or self-care (01) ==
LOC: LAB 12:46
PROVIDERS: ATTEND Internal Medicine
DX: K74.60 Unspecified cirrhosis of liver (principal); F10.20 Alcohol dependence, uncomplicated
CPT/HCPCS: 36415; 80053; 85025; 85610; 85730

== ENCOUNTER → 2021-09-12 | Outpatient (CLI) | payer OTHER ==
[2021-09-12 10:03] LABS: Basophils # (auto) 0 10 ^3/uL (0-0.2); Basophils % (auto) 0.7 % (0.0-2.0); Eosinophils # (auto) 0.1 10 ^3/uL (0-0.8); Eosinophils % (auto) 1.6 % (0.0-7.0); Hematocrit 38.1 % (36.0-46.0); Hemoglobin 12.6 g/dL (12.2-16.2); Lymphocytes # (auto) 1.4 10 ^3/uL (0.4-5.4); Lymphocytes % (auto) 24.9 % (10.0-50.0); Mean Corpuscular Hemoglobin 29.7 pg (28.0-32.0); Mean Corpuscular Hgb Conc. 33.1 g/dL (32.0-36.0); Mean Corpuscular Volume 89.7 fL (80.0-100.0); Monocytes # (auto) 0.4 10 ^3/uL (0-1.3); Monocytes % (auto) 7.9 % (0.0-12.0); Neutrophils # (auto) 3.7 10 ^3/uL (1.6-8.6); Neutrophils % (auto) 64.9 % (37.0-80.0); Nucleated Red Blood Cells % 0.1 %; Red Blood Cells 4.24 10^6/uL (4.0-5.20); Red Cell Distribution Width 15.6 % (11.8-14.3); White Blood Cell 5.7 10^3/uL (4.4-10.8)
[2021-09-12 11:35] LABS: Calcium 9.5 mg/dL (8.5-10.1); Potassium 4.2 mmol/L (3.5-5.1)
[2021-09-12 11:55] LABS: Albumin 3.8 g/dL (3.4-5.0); BUN/Creatinine Ratio 13.1; Bilirubin, Total 0.8 mg/dL (0.2-1.0); Total Protein 8.5 g/dL (6.4-8.2)
== END | disposition home or self-care (01) ==
LOC: LAB 09:30
PROVIDERS: ATTEND Physician Assistant
DX: E83.110 Hereditary hemochromatosis (principal)
CPT/HCPCS: 36415; 80053; 82728; 83540; 83550; 83615; 85025

== ENCOUNTER → 2021-09-30 | Outpatient (CLI) | payer OTHER | END | disposition home or self-care (01) | LOC: LAB 10:00 | PROVIDERS: ATTEND Family Medicine | DX: L57.0 Actinic keratosis (principal) | CPT/HCPCS: 88302 ==

== ENCOUNTER → 2021-10-07 | Outpatient (CLI) | payer OTHER | END | disposition home or self-care (01) | LOC: LAB 10:00 | PROVIDERS: ATTEND Family Medicine | DX: C44.91 Basal cell carcinoma of skin, unspecified (principal); L57.0 Actinic keratosis | CPT/HCPCS: 88302 ==

== ENCOUNTER → 2021-12-05 | Outpatient (CLI) | payer OTHER ==
[2021-12-05 09:59] LABS: BUN/Creatinine Ratio 24.5
== END | disposition home or self-care (01) ==
LOC: LAB 09:23
PROVIDERS: ATTEND Internal Medicine
DX: K57.30 Diverticulosis of large intestine without perforation or abscess without bleeding (principal); I27.20 Pulmonary hypertension, unspecified
CPT/HCPCS: 36415; 80048

== ENCOUNTER → 2021-12-12 | Outpatient (CLI) | payer OTHER ==
[2021-12-12 10:29] LABS: Basophils # (auto) 0 10 ^3/uL (0-0.2); Basophils % (auto) 0.7 % (0.0-2.0); Eosinophils # (auto) 0.1 10 ^3/uL (0-0.8); Eosinophils % (auto) 1.5 % (0.0-7.0); Hematocrit 35.2 % (36.0-46.0); Hemoglobin 11.5 g/dL (12.2-16.2); Lymphocytes # (auto) 1.1 10 ^3/uL (0.4-5.4); Lymphocytes % (auto) 22.8 % (10.0-50.0); Mean Corpuscular Hemoglobin 29.9 pg (28.0-32.0); Mean Corpuscular Hgb Conc. 32.6 g/dL (32.0-36.0); Mean Corpuscular Volume 91.9 fL (80.0-100.0); Monocytes # (auto) 0.3 10 ^3/uL (0-1.3); Monocytes % (auto) 6.2 % (0.0-12.0); Neutrophils # (auto) 3.4 10 ^3/uL (1.6-8.6); Neutrophils % (auto) 68.8 % (37.0-80.0); Nucleated Red Blood Cells % 0.2 %; Red Blood Cells 3.84 10^6/uL (4.0-5.20); Red Cell Distribution Width 17.7 % (11.8-14.3); White Blood Cell 4.9 10^3/uL (4.4-10.8)
[2021-12-12 10:53] LABS: Albumin 3.6 g/dL (3.4-5.0); Calcium 8.7 mg/dL (8.5-10.1); Potassium 4.3 mmol/L (3.5-5.1)
[2021-12-12 10:56] LABS: BUN/Creatinine Ratio 14.1; Bilirubin, Total 0.5 mg/dL (0.2-1.0); Total Protein 7.8 g/dL (6.4-8.2)
[2021-12-12 11:01] LABS: % Iron Saturation 15.2 % (15-50)
== END | disposition home or self-care (01) ==
LOC: LAB 10:01
PROVIDERS: ATTEND Physician Assistant
DX: E83.110 Hereditary hemochromatosis (principal)
CPT/HCPCS: 36415; 80053; 82728; 83540; 83550; 83615; 85025

== ENCOUNTER → 2022-01-11 | Outpatient (CLI) | payer OTHER ==
[2022-01-11 09:15] LABS: Basophils # (auto) 0.1 10 ^3/uL (0-0.2); Basophils % (auto) 1.3 % (0.0-2.0); Eosinophils # (auto) 0.1 10 ^3/uL (0-0.8); Eosinophils % (auto) 2.8 % (0.0-7.0); Hematocrit 37.8 % (36.0-46.0); Hemoglobin 12.3 g/dL (12.2-16.2); Lymphocytes # (auto) 1.5 10 ^3/uL (0.4-5.4); Lymphocytes % (auto) 29.2 % (10.0-50.0); Mean Corpuscular Hemoglobin 30.2 pg (28.0-32.0); Mean Corpuscular Hgb Conc. 32.6 g/dL (32.0-36.0); Mean Corpuscular Volume 92.6 fL (80.0-100.0); Monocytes # (auto) 0.4 10 ^3/uL (0-1.3); Monocytes % (auto) 7.4 % (0.0-12.0); Neutrophils % (auto) 59.3 % (37.0-80.0); Nucleated Red Blood Cells % 0.1 %; Red Blood Cells 4.08 10^6/uL (4.0-5.20); Red Cell Distribution Width 16.4 % (11.8-14.3); White Blood Cell 5.1 10^3/uL (4.4-10.8)
[2022-01-11 10:39] LABS: Folate (Folic Acid) 9.1 ng/mL (5.38-24)
== END | disposition home or self-care (01) ==
LOC: LAB 08:52
PROVIDERS: ATTEND Internal Medicine
DX: I27.20 Pulmonary hypertension, unspecified (principal); D64.9 Anemia, unspecified; I10 Essential (primary) hypertension; K27.0 Acute peptic ulcer, site unspecified, with hemorrhage
CPT/HCPCS: 36415; 82607; 82746; 85025

== ENCOUNTER → 2022-02-07 | Outpatient (CLI) | payer OTHER | END | disposition home or self-care (01) | LOC: XYW 10:23 | PROVIDERS: ATTEND Internal Medicine | DX: G45.9 Transient cerebral ischemic attack, unspecified (principal) | CPT/HCPCS: 93306 ==

== ENCOUNTER → 2022-02-08 | Outpatient (CLI) | payer OTHER | END | disposition home or self-care (01) | LOC: XYW 09:42 | PROVIDERS: ATTEND Internal Medicine | DX: G45.9 Transient cerebral ischemic attack, unspecified (principal) | CPT/HCPCS: 93886 ==

== ENCOUNTER → 2022-02-22 | Outpatient (CLI) | payer OTHER ==
[2022-02-22 11:27] LABS: Albumin 3.4 g/dL (3.4-5.0); Bilirubin, Direct 0.3 mg/dL (0-0.2)
[2022-02-22 11:30] LABS: Bilirubin, Total 0.7 mg/dL (0.2-1.0)
== END | disposition home or self-care (01) ==
LOC: LAB 09:51
PROVIDERS: ATTEND Internal Medicine
DX: E78.5 Hyperlipidemia, unspecified (principal)
CPT/HCPCS: 36415; 80076

== ENCOUNTER → 2022-03-23 | Outpatient (CLI) | payer OTHER ==
[2022-03-23 10:43] LABS: Basophils # (auto) 0 10 ^3/uL (0-0.2); Basophils % (auto) 0.4 % (0.0-2.0); Eosinophils # (auto) 0.1 10 ^3/uL (0-0.8); Eosinophils % (auto) 2.7 % (0.0-7.0); Hematocrit 36.7 % (36.0-46.0); Hemoglobin 11.9 g/dL (12.2-16.2); Lymphocytes # (auto) 1.2 10 ^3/uL (0.4-5.4); Lymphocytes % (auto) 24.7 % (10.0-50.0); Mean Corpuscular Hemoglobin 29.1 pg (28.0-32.0); Mean Corpuscular Hgb Conc. 32.4 g/dL (32.0-36.0); Mean Corpuscular Volume 89.9 fL (80.0-100.0); Monocytes # (auto) 0.3 10 ^3/uL (0-1.3); Neutrophils # (auto) 3.3 10 ^3/uL (1.6-8.6); Neutrophils % (auto) 66.2 % (37.0-80.0); Red Blood Cells 4.09 10^6/uL (4.0-5.20); Red Cell Distribution Width 15.8 % (11.8-14.3); White Blood Cell 4.9 10^3/uL (4.4-10.8)
[2022-03-23 11:01] LABS: Albumin 3.4 g/dL (3.4-5.0); Potassium 4.6 mmol/L (3.5-5.1)
[2022-03-23 11:12] LABS: BUN/Creatinine Ratio 8.6; Bilirubin, Direct 0.3 mg/dL (0-0.2); Bilirubin, Total 0.8 mg/dL (0.2-1.0); Total Protein 7.1 g/dL (6.4-8.2)
== END | disposition home or self-care (01) ==
LOC: LAB 10:07
PROVIDERS: ATTEND Internal Medicine
DX: E83.110 Hereditary hemochromatosis (principal); E78.5 Hyperlipidemia, unspecified
CPT/HCPCS: 36415; 80053; 80061; 80076; 82668; 82728; 83540; 83550; 83615; 85025